=== PATIENT | female | born 1955 | race Caucasian/White ===

== ENCOUNTER → 2017-03-22 | Outpatient (CLI) | payer BC ==
--- NOTE | 2017-03-22 11:32 | US ---
EXAMINATION TYPE: US venous doppler duplex LE LT DATE OF EXAM: 03/22/2017 11:11 AM COMPARISON: NONE CLINICAL HISTORY: M25.562,M17.12,I82.402,PAIN LT KNEE,OSTEOARTHRITIS,ACUTE EMB. Left leg pain and swe lling x 2 days SIDE PERFORMED: Left TECHNIQUE: The lower extremity deep venous system is examined utilizing real time linear array sonog ana with graded compression, doppler sonography and color-flow sonography. VESSELS IMAGED: External Iliac Vein (EIV) Common Femoral Vein Deep Femoral Vein Greater Saphenous Vein * Femoral Vein Popliteal Vein Small Saphenous Vein * Proximal Calf Veins (* superficial vessels) Left Leg: Appears negative for DVT, popliteal fossa: 8.4cm irregular non vascular complex area anter ior to and separate from vessels Complex popliteal cyst is not excluded. Consider thrombosed varicosities within the differential. Vas cularity is not identified within this structure. Additional workup with MRI may be useful. IMPRESSION: 1. No deep venous from below cysts by ultrasound. 2. Irregular echogenicity which appears somewhat lobular in the posterior fossa. This is not a typica l hypoechoic cyst. This has more echogenicity than typically identified for a typical popliteal fossa cyst. Consider MRI for additional evaluation.
== END | disposition home or self-care (01) ==
LOC: RADUSWWP 10:36
PROVIDERS: ATTEND Orthopaedic Surgery
DX: M25.562 Pain in left knee (principal); M79.662 Pain in left lower leg

== ENCOUNTER → 2017-04-23 | Outpatient (CLI) | payer BC ==
[2017-04-23 11:56] LABS: Blood Urea Nitrogen 18 mg/dL (7-17); Non-African American GFR(MDRD) >60 (>60 ml/min/1.73 sqM)
== END | disposition home or self-care (01) ==
LOC: LABWHC1 10:56
PROVIDERS: ATTEND Orthopaedic Surgery
DX: Z01.812 Encounter for preprocedural laboratory examination (principal); M17.12 Unilateral primary osteoarthritis, left knee; M71.22 Synovial cyst of popliteal space [Baker], left knee; R60.1 Generalized edema
CPT/HCPCS: 36415; 82565; 84520

== ENCOUNTER → 2018-08-05 | Outpatient (CLI) | payer MEDICARE ==
--- NOTE | 2018-08-06 07:39 | MM ---
Reason for exam: additional evaluation requested from abnormal screening. Last mammogram was performed 1 month ago. History: Patient is postmenopausal. Family history of breast cancer in cousin. Took hormonal contraceptives for 5 years beginning at age 20. Physical Findings: Nurse did not find any significant physical abnormalities on exam. MG 3D Work Up W/Cad RT CC and MLO view(s) were taken of the right breast. Prior study comparison: July 10, 2018, bilateral MG 3d screening mammo w/cad. September 27, 2015, bilateral MG screening mammo w CAD. There are scattered fibroglandular densities. Asymmetric breast tissue in right breast 10cm from nipple, 5mm in size. No significant new findings when compared with previous films. These results were verbally communicated with the patient and result sheet given to the patient on 08/05/18. ASSESSMENT: Incomplete: need additional imaging evaluation, BI-RAD 0 RECOMMENDATION: Ultrasound of the right breast.
--- NOTE | 2018-08-06 07:40 | USB ---
Reason for exam: additional evaluation requested from abnormal screening. History: Patient is postmenopausal. Family history of breast cancer in cousin. Took hormonal contraceptives for 5 years beginning at age 20. US Breast Workup Limited RT Right limited breast ultrasound including focal area of concern, retroareolar and axilla demonstrates no cystic or solid lesion seen. These results were verbally communicated with the patient and result sheet given to the patient on 08/05/18. ASSESSMENT: Probably benign, BI-RAD 3 RECOMMENDATION: Follow-up diagnostic mammogram of the right breast in 6 months.
== END | disposition home or self-care (01) ==
LOC: RADMAMWWP 14:57
PROVIDERS: ATTEND Internal Medicine
DX: R92.8 Other abnormal and inconclusive findings on diagnostic imaging of breast (principal)
CPT/HCPCS: 77065; 76642; G0279; 77061

== ENCOUNTER → 2019-08-06 | Outpatient (CLI) | payer MEDICARE ==
--- NOTE | 2019-08-06 10:54 | MM ---
Reason for exam: additional evaluation requested from prior study. Last mammogram was performed 1 year ago. History: Patient is postmenopausal. Family history of breast cancer in cousin. Took hormonal contraceptives for 5 years beginning at age 20. Physical Findings: Nurse did not find any significant physical abnormalities on exam. MG 3D Diag Mammo W/Cad COLLIN Bilateral CC and MLO view(s) were taken. Prior study comparison: August 05, 2018, right breast MG 3d work up w/cad RT. July 10, 2018, bilateral MG 3d screening mammo w/cad. There are scattered fibroglandular densities. There is a persistent 3mm mass with an internal calcifications 10cm from nipple in the upper outer quadrant. These results were verbally communicated with the patient and result sheet given to the patient on 08/06/19. ASSESSMENT: Incomplete: need additional imaging evaluation, BI-RAD 0 RECOMMENDATION: Ultrasound of the right breast. (upper outer quadrant)
--- NOTE | 2019-08-06 10:57 | USB ---
Reason for exam: additional evaluation requested from abnormal screening. History: Patient is postmenopausal. Family history of breast cancer in cousin. Took hormonal contraceptives for 5 years beginning at age 20. US Breast RT Right complete breast ultrasound includes all four quadrants, the retroareolar region and axilla. Finding demonstrates no cystic or solid lesion seen. No sonographic correlate. Benign the mammographic abnormality is stable from 2018 but new from remote priors, this remains probably benign. These results were verbally communicated with the patient and result sheet given to the patient on 08/06/19. ASSESSMENT: Probably benign, BI-RAD 3 RECOMMENDATION: Follow-up diagnostic mammogram of both breasts in 1 year.
== END | disposition home or self-care (01) ==
LOC: RADMAMWWP 09:03
PROVIDERS: ATTEND Internal Medicine
DX: R92.8 Other abnormal and inconclusive findings on diagnostic imaging of breast (principal)
CPT/HCPCS: 77066; 76641; G0279; 77062

== ENCOUNTER 2020-12-01 09:43 | Emergency (ER) | payer MEDICARE ==
[2020-12-01 09:52] VITALS: RESP 18
--- NOTE | 2020-12-01 10:39 | ED ---
General Adult HPI - General Chief complaint: Upper Respiratory Infection Stated complaint: Covid+, infusion Time Seen by Provider: 12/01/20 10:38 Source: patient Mode of arrival: ambulatory Limitations: no limitations - History of Present Illness Initial comments: 65-year-old female presents to emergency Department with a chief complaint of Covid infusion. Patient reports she was advised by Dr. Raphael to have a monoclonal antibody infusion but she was leery of getting it and went and did some additional research. States she decided to return today to get the infusion. States she tested positive yesterday but has been having symptoms for the past 4 days. She reports fatigue, myalgias and a nonproductive cough. Denies any chest pain or shortness of breath, nausea, vomiting, diarrhea, abdominal pain. - Related Data Home Medications Medication Instructions Recorded Confirmed Cetirizine HCl [Zyrtec] 5 mg PO DAILY 05/12/14 05/12/14 Citalopram Hydrobromide [CeleXA] 20 mg PO DAILY 05/12/14 05/12/14 Lovastatin [Mevacor] 10 mg PO DAILY 05/12/14 05/12/14 lisinopriL [Zestril] 5 mg PO DAILY 05/12/14 05/12/14 Allergies Allergy/AdvReac Type Severity Reaction Status Date / Time No Known Allergies Allergy Verified 12/01/20 09:48 Review of Systems ROS Statement: Those systems with pertinent positive or pertinent negative responses have been documented in the HPI. ROS Other: All systems not noted in ROS Statement are negative. Past Medical History Past Medical History: Hyperlipidemia, Hypertension History of Any Multi-Drug Resistant Organisms: None Reported Past Surgical History: Orthopedic Surgery Additional Past Surgical History / Comment(s): RIGHT KNEE SURGERY Past Psychological History: No Psychological Hx Reported Smoking Status: Never smoker Past Alcohol Use History: Daily Past Drug Use History: None Reported General Exam Limitations: no limitations General appearance: alert, in no apparent distress Head exam: Present: atraumatic, normocephalic, normal inspection Eye exam: Present: normal appearance, PERRL, EOMI Pupils: Present: normal accommodation ENT exam: Present: normal exam, normal oropharynx, mucous membranes moist, TM's normal bilaterally, normal external ear exam Neck exam: Present: normal inspection, full ROM. Absent: tenderness Respiratory exam: Present: normal lung sounds bilaterally. Absent: respiratory distress Cardiovascular Exam: Present: regular rate, normal rhythm, normal heart sounds GI/Abdominal exam: Present: soft. Absent: distended, tenderness, guarding, rebound Extremities exam: Present: normal inspection, full ROM, normal capillary refill. Absent: tenderness, pedal edema, joint swelling Back exam: Present: normal inspection, full ROM. Absent: tenderness, CVA tenderness (R), CVA tenderness (L) Neurological exam: Present: alert, oriented X3 Psychiatric exam: Present: normal affect, normal mood Skin exam: Present: warm, dry, intact, normal color Course Vital Signs 12/01/20 09:48 Temperature 98.6 F Pulse Rate 63 Respiratory 18 Rate Blood Pressure 128/82 O2 Sat by Pulse 100 Oximetry Medical Decision Making - Medical Decision Making 65-year-old female presents to emergency Department with a chief complaint of code infusion. Physical examination is unremarkable. Patient does not appear to be in any respiratory distress. Vital signs are within normal limits. She does fit the criteria to have the medication given. monoclonal antibody administered. Was observed for one hour after administration. Patient will be discharged. Strict return parameters were thoroughly discussed patient was him standing and agreeable. Case discussed with Dr. Brooks. Disposition Clinical Impression: COVID-19 Disposition: HOME SELF-CARE Condition: Stable Instructions (If sedation given, give patient instructions): Coronavirus Disease 2019 (COVID-19) Additional Instructions: Please return to the Emergency Department if symptoms worsen or any other concerns. Quarantine for 10 days after the onset of symptoms. Take Tylenol for fever. Is patient prescribed a controlled substance at d/c from ED?: No Referrals: Caesar Raphael MD [Primary Care Provider] - 1-2 days Time of Disposition: 11:03
[2020-12-01] MEDS ORDERED: BAMLANIVIMAB (EUA) 700 MG, ETESEVIMAB (EUA) 1,400 MG in SODIUM CHLORIDE 0.9% 50 ML IVPB ONE (11:15)
[2020-12-01 13:30] VITALS: BP 147/83; PULSE 70; TEMP 98.9
== END 2020-12-01 13:20 | disposition home or self-care (01) ==
LOC: EC 09:43
DX: U07.1 COVID-19 (principal); E78.5 Hyperlipidemia, unspecified; I10 Essential (primary) hypertension
CPT/HCPCS: 96365; 99283

== ENCOUNTER 2021-03-12 16:33 | Observation (INO) | payer MEDICARE ==
--- NOTE | 2021-03-12 17:18 | ED ---
General Adult HPI - General Chief complaint: Altered Mental Status Stated complaint: Confused Time Seen by Provider: 03/12/21 16:58 Source: patient Mode of arrival: ambulatory Limitations: no limitations - History of Present Illness Initial comments: Dictation was produced using [employer] dictation software. please excuse any grammatical, word or spelling errors. Chief Complaint: 65-year-old female presents emergency department for altered mental status History of Present Illness: 65-year-old female she is accompanied by a friend. Patient was at one of the local [facility] when all of a sudden she developed acute mental status changes. Patient's friend accompanies the patient they were going about their business when all of a sudden patient began asking a lot of questions. She seems to be forgetful of the short-term. She is brought to the emergency department. Patient knows that she is confused. Patient has any numbness tingling weakness to the extremities. Patient has no history of stroke. She denies any history of headaches. The ROS documented in this emergency department record has been reviewed and confirmed by me. Those systems with pertinent positive or negative responses have been documented in the HPI. All other systems are other negative and/or noncontributory. PHYSICAL EXAM: General Impression: Alert and oriented x3, not in acute distress HEENT: Normocephalic atraumatic, extra-ocular movements intact, pupils equal and reactive to light bilaterally, mucous membranes moist. Cardiovascular: Heart regular rate and rhythm Chest: Able to complete full sentences, no retractions, no tachypnea Abdomen: abdomen soft, non-tender, non-distended, no organomegaly Musculoskeletal: Pulses present and equal in all extremities, no peripheral edema Motor: no focal deficits noted Neurological: CN II-XII grossly intact, no focal motor or sensory deficits noted, NIH 0 Skin: Intact with no visualized rashes Psych: Normal affect and mood ED course: 65-year-old female presents with confusion. She appears to have short-term amnesia. She does not quite remember the events that happened earlier today. She however otherwise has a normal neuro exam. Vital signs upon arrival are within acceptable limits. Patient's well-appearing hours she still rather forgetful about the events that happened today. Computed tomography scan of the brain and labs are unremarkable. Patient reevaluated bedside she is resting comfortably however she still having trouble remembering what she did today. Patient has no history of neurologic issues. Disposition options were discussed. Patient is agreeable for observation admission with consultation to neurology. EKG interpretation: Ventricular rate 80, normal sinus rhythm,. Interval 190, QRS 100, QTC 452. No AL prolongation, no QTC prolongation, n T-wave inversions in the anterior precordial leads No old EKG for comparison. Overall, this EKG is nonspecific - Related Data Home Medications Medication Instructions Recorded Confirmed Cetirizine HCl [Zyrtec] 5 mg PO DAILY 05/12/14 05/12/14 Citalopram Hydrobromide [CeleXA] 20 mg PO DAILY 05/12/14 05/12/14 Lovastatin [Mevacor] 10 mg PO DAILY 05/12/14 05/12/14 lisinopriL [Zestril] 5 mg PO DAILY 05/12/14 05/12/14 Allergies Allergy/AdvReac Type Severity Reaction Status Date / Time No Known Allergies Allergy Verified 03/12/21 16:43 Review of Systems ROS Statement: Those systems with pertinent positive or pertinent negative responses have been documented in the HPI. ROS Other: All systems not noted in ROS Statement are negative. Past Medical History Past Medical History: Hyperlipidemia, Hypertension History of Any Multi-Drug Resistant Organisms: None Reported Past Surgical History: Orthopedic Surgery Additional Past Surgical History / Comment(s): RIGHT KNEE SURGERY Past Psychological History: No Psychological Hx Reported Smoking Status: Never smoker Past Alcohol Use History: Daily Past Drug Use History: None Reported General Exam Limitations: no limitations Course Vital Signs 03/12/21 03/12/21 16:38 17:13 Temperature 97.8 F Pulse Rate 86 72 Respiratory 16 18 Rate Blood Pressure 155/81 154/83 O2 Sat by Pulse 100 96 Oximetry Medical Decision Making - Lab Data Result diagrams: 03/12/21 17:17 03/12/21 17:17 Lab Results 03/12/21 03/12/21 03/12/21 Range/Units 17:17 17:17 17:17 WBC 5.5 (3.8-10.6) k/uL RBC 4.74 (3.80-5.40) m/uL Hgb 13.9 (11.4-16.0) gm/dL Hct 42.0 (34.0-46.0) % MCV 88.6 (80.0-100.0) fL MCH 29.3 (25.0-35.0) pg MCHC 33.1 (31.0-37.0) g/dL RDW 14.0 (11.5-15.5) % Plt Count 217 (150-450) k/uL MPV 6.8 Neutrophils % 71 % Lymphocytes % 19 % Monocytes % 5 % Eosinophils % 2 % Basophils % 0 % Neutrophils # 4.0 (1.3-7.7) k/uL Lymphocytes # 1.1 (1.0-4.8) k/uL Monocytes # 0.3 (0-1.0) k/uL Eosinophils # 0.1 (0-0.7) k/uL Basophils # 0.0 (0-0.2) k/uL PT 11.6 (9.0-12.0) sec INR 1.1 (<1.2) APTT 22.5 (22.0-30.0) sec Sodium 140 (137-145) mmol/L Potassium 3.9 (3.5-5.1) mmol/L Chloride 104 (98-107) mmol/L Carbon Dioxide 28 (22-30) mmol/L Anion Gap 8 mmol/L BUN 16 (7-17) mg/dL Creatinine 0.71 (0.52-1.04) mg/dL Est GFR (CKD-EPI)AfAm >90 (>60 ml/min/1.73 sqM) Est GFR (CKD-EPI)NonAf 89 (>60 ml/min/1.73 sqM) Glucose 98 (74-99) mg/dL Calcium 9.4 (8.4-10.2) mg/dL Total Bilirubin 0.9 (0.2-1.3) mg/dL AST 30 (14-36) U/L ALT 20 (4-34) U/L Alkaline Phosphatase 104 (38-126) U/L Troponin I (0.000-0.034) ng/mL Total Protein 6.8 (6.3-8.2) g/dL Albumin 4.4 (3.5-5.0) g/dL 03/12/21 Range/Units 17:17 WBC (3.8-10.6) k/uL RBC (3.80-5.40) m/uL Hgb (11.4-16.0) gm/dL Hct (34.0-46.0) % MCV (80.0-100.0) fL MCH (25.0-35.0) pg MCHC (31.0-37.0) g/dL RDW (11.5-15.5) % Plt Count (150-450) k/uL MPV Neutrophils % % Lymphocytes % % Monocytes % % Eosinophils % % Basophils % % Neutrophils # (1.3-7.7) k/uL Lymphocytes # (1.0-4.8) k/uL Monocytes # (0-1.0) k/uL Eosinophils # (0-0.7) k/uL Basophils # (0-0.2) k/uL PT (9.0-12.0) sec INR (<1.2) APTT (22.0-30.0) sec Sodium (137-145) mmol/L Potassium (3.5-5.1) mmol/L Chloride (98-107) mmol/L Carbon Dioxide (22-30) mmol/L Anion Gap mmol/L BUN (7-17) mg/dL Creatinine (0.52-1.04) mg/dL Est GFR (CKD-EPI)AfAm (>60 ml/min/1.73 sqM) Est GFR (CKD-EPI)NonAf (>60 ml/min/1.73 sqM) Glucose (74-99) mg/dL Calcium (8.4-10.2) mg/dL Total Bilirubin (0.2-1.3) mg/dL AST (14-36) U/L ALT (4-34) U/L Alkaline Phosphatase (38-126) U/L Troponin I <0.012 (0.000-0.034) ng/mL Total Protein (6.3-8.2) g/dL Albumin (3.5-5.0) g/dL Disposition Clinical Impression: Acute alteration in mental status Disposition: ADMITTED IP TO THIS HOSP Condition: Fair Referrals: Caesar Raphael MD [Primary Care Provider] - 1-2 days
[2021-03-12 17:27] LABS: Basophils % (A) 0 %; Eosinophils # (A) 0.1 k/uL (0-0.7); Eosinophils % (A) 2 %; HGB 13.9 gm/dL (11.4-16.0); Lymphocytes # (A) 1.1 k/uL (1.0-4.8); Lymphocytes % (A) 19 %; MCH 29.3 pg (25.0-35.0); MCHC 33.1 g/dL (31.0-37.0); MCV 88.6 fL (80.0-100.0); Mean Platelet Volume 6.8; Monocytes # (A) 0.3 k/uL (0-1.0); Monocytes % (A) 5 %; Neutrophils % (A) 71 %; Platelet Count 217 k/uL (150-450); RBC 4.74 m/uL (3.80-5.40); WBC 5.5 k/uL (3.8-10.6)
[2021-03-12 17:39] LABS: ALT 20 U/L (4-34); AST 30 U/L (14-36); African American GFR (CKD) >90 (>60 ml/min/1.73 sqM); Albumin 4.4 g/dL (3.5-5.0); Alkaline Phosphatase 104 U/L (38-126); Anion Gap 8 mmol/L; Blood Urea Nitrogen 16 mg/dL (7-17); Calcium 9.4 mg/dL (8.4-10.2); Carbon Dioxide 28 mmol/L (22-30); Chloride 104 mmol/L (98-107); Glucose 98 mg/dL (74-99); Non-African American GFR(CKD) 89 (>60 ml/min/1.73 sqM); Potassium 3.9 mmol/L (3.5-5.1); Sodium 140 mmol/L (137-145); Total Bilirubin 0.9 mg/dL (0.2-1.3); Total Protein 6.8 g/dL (6.3-8.2)
[2021-03-12 17:41] LABS: INR 1.1 (<1.2); Partial Thromboplastin Time 22.5 sec (22.0-30.0); Prothrombin Time 11.6 sec (9.0-12.0)
--- NOTE | 2021-03-12 17:41 | CT ---
EXAM: CT brain wo con for TPA CLINICAL HISTORY: Neuro deficit, confusion and suspected stroke. COMPARISON: None TECHNIQUE: Contiguous axial noncontrast images of the brain were obtained. Coronal and sagittal refor mats were generated and reviewed. Automated dose control was used for this exam. FINDINGS: There is no evidence for intracranial hemorrhage, mass effect or midline shift. The white matter is g rossly preserved. Ventricular size and configuration is within normal limits for degree of parenchymal volume. The paranasal sinuses are clear. The mastoid air cells are clear. No evidence for calvarial fracture. IMPRESSION: No acute intracranial abnormality.
--- NOTE | 2021-03-12 18:15 | XR ---
EXAMINATION TYPE: XR chest 2V DATE OF EXAM: 03/12/2021 COMPARISON: NONE HISTORY: Altered mental status. TECHNIQUE: Frontal and lateral views of the chest are obtained. FINDINGS: There is no focal air space opacity, pleural effusion, or pneumothorax seen. The cardiac silhouette size is borderline enlarged. The osseous structures are intact. IMPRESSION: No acute cardiopulmonary process.
[2021-03-12] MEDS ORDERED: NALOXONE 0.4 MG/ML 1 ML VIAL IV PRN (19:04)
[2021-03-12 19:32] LABS: Appearance,Urine Clear (Clear); Bilirubin,Urine Negative (Negative); Blood,Urine Negative (Negative); Color,Urine Yellow; Glucose,Urine (UA) Negative (Negative); Ketones,Urine Negative (Negative); Leukocyte Esterase,Urine Negative (Negative); Nitrite,Urine Negative (Negative); Protein,Urine Negative (Negative); Specific Gravity,Urine 1.023 (1.001-1.035); Urobilinogen,Urine <2.0 mg/dL (<2.0)
[2021-03-12] MEDS: SODIUM CHLORIDE 0.9% 1,000 ML IV SCH (21:50)
[2021-03-13] MEDS ORDERED: FLUTICASONE 50MCG/SPRAY NASAL 16GM EA NOSTRIL PRN (06:55)
--- NOTE | 2021-03-13 09:09 | P.CNNES ---
History of Present Illness Consult date: 03/13/21 Requesting physician: Yogi Calvin Reason for Consult: Acute confusion History of Present Illness: Patient is a 65-year-old right-handed female came to the hospital yesterday at 4:33 PM came to the hospital for altered mental status. Patient has history of hypertension, hyperlipidemia, currently only taking herbal medications, states that yesterday at around 1 PM she has gone to [employer] in [facility], with her friend at 1 PM, when she acutely became confused, asking her "what are you doing here", asking and repeating questions. There was no slurred speech, facial droop or any other focal symptoms reported. Patient states that she didn't remember parking her car at her friend's house, getting into her car, driving to the parking lot of [employer], and then she took trolley. She does not remember what happened after that. She apparently can see a receipt for a Lavender Mina and raspberry jam, but she does not remember buying these items. She does not remember how she got back to her car, if she took a trolley or she walked to her friend's car in the parking lot. Her friend drove her to the hospital. There was no report of facial droop, slurred speech, visual problems. Patient did have a mild headache which is very unusual for her the night prior which she rated 4/10. Yesterday morning she did not have any headache however when she got to the ER, she did have a headache which she dated 02/09. It involves the left parietal temporal region. No nausea or vomiting. At present it is 3-4/10. Vital signs on arrival blood pressure 155/81, pulse rate 86, temperature 97.8, respirations 16. CT head showed no acute intracranial abnormality. No evidence for intracranial hemorrhage mass effect or midline shift. Chest x-ray showed no acute cardiopulmonary disease. EKG with normal sinus rhythm. Incomplete RBBB, left anterior fascicular block. T wave abnormality. Blood test shows normal CBC, PT/PTT, Chem-20, troponin and UA. Patient at home takes a lot of herbs. She takes multivitamin, vitamin D magnesium vitamin C. Patient states that she was treated for hypertension and hyperlipidemia for 8 years, but she quit taking medication in 2015 as her blood pressure and lipids were under control. She used to take lisinopril and something for cholesterol. She drinks 1-2 glasses of wine every night, does not drink heavily. Never smoked. Patient denies any family history of cerebral aneurysms. No history of migraines. Patient's father had history of CVA. Patient states that in and of October 2020, she suffered from Covid-19 for which she received monoclonal antibodies in early December 2020. Patient states that she sometimes takes CBD all, but has not taken it for a couple weeks. Review of Systems As mentioned in HPI. All other review of systems unremarkable. Denies any chest pain shortness of breath wheezing or cough. Denies any nausea vomiting diarrhea. Denies fever or chills, weight loss. Denies double vision, hoarseness, sore throat, dysphagia. Patient does have history of hypertension and anxiety in the past, currently not being treated. Denies diabetes. Patient has arthritis, history of right knee surgery. Past Medical History Past Medical History: Hyperlipidemia, Hypertension History of Any Multi-Drug Resistant Organisms: None Reported Past Surgical History: Orthopedic Surgery Additional Past Surgical History / Comment(s): RIGHT KNEE SURGERY Past Psychological History: No Psychological Hx Reported Smoking Status: Never smoker Past Alcohol Use History: Daily Past Drug Use History: None Reported Medications and Allergies Home Medications Medication Instructions Recorded Confirmed Type Ascorbic Acid [Vitamin C] 1,000 mg PO DAILY 03/12/21 03/12/21 History Beet Root Cap 1 cap PO DAILY 03/12/21 03/12/21 History Cholecalciferol [Vitamin D3 (25 25 mcg PO DAILY 03/12/21 03/12/21 History Mcg = 1000 Iu)] Deep Sleep Tab 1 tab PO HS 03/12/21 03/12/21 History Goji Zavala 1 tab PO DAILY 03/12/21 03/12/21 History Thor Zavala 1 tab PO DAILY 03/12/21 03/12/21 History L.acidoph,Paracasei, B.lactis 1 cap PO DAILY 03/12/21 03/12/21 History [Probiotic] Magnesium Oxide [Mag-Ox] 250 mg PO DAILY 03/12/21 03/12/21 History Multivitamins, Thera [Multivitamin 1 tab PO DAILY 03/12/21 03/12/21 History (formulary)] Oregano Oil 1 tab PO DAILY 03/12/21 03/12/21 History Quercetin 1 tab PO DAILY 03/12/21 03/12/21 History Ubidecarenone [Co Q-10] 100 mg PO DAILY 03/12/21 03/12/21 History Allergies Allergy/AdvReac Type Severity Reaction Status Date / Time No Known Allergies Allergy Verified 03/12/21 19:23 Physical Examination - Vital Signs Vital Signs: Vital Signs Temp Pulse Resp BP Pulse Ox 03/13/21 05:00 98.3 F 73 18 158/78 97 03/13/21 01:29 98.4 F 67 18 150/85 98 03/12/21 23:34 87 16 172/81 98 03/12/21 19:18 97.5 F L 77 18 164/89 99 03/12/21 17:13 72 18 154/83 96 03/12/21 16:38 97.8 F 86 16 155/81 100 Intake and Output 03/12/21 03/13/21 03/13/21 22:59 06:59 14:59 Other: Weight 95.028 kg Patient is an elderly female, very pleasant, in no acute distress. Patient is alert awake oriented to time place and person. Speech and language functions are normal. Attention, concentration and fund of knowledge is adequate. No paraphasic errors noted. On cranial examination, pupils are equal, round and reacting to light, visual [place] are full on confrontation, with no neglect on double simultaneous stimulation, extraocular muscles are intact with no nystagmus. Face is symme tric, tongue protrudes to the midline. Palatal elevation and sensation normal, hearing and shoulder shrug normal, facial sensation normal. On muscle strength testing, there is no pronator drift and the strength is normal in arms and legs distally and proximally. Deep tendon reflexes are 1 in the upper limbs, 2 in the lower limbs and plantars downgoing. Sensory to touch and temperature is equal with no neglect. Cerebellar function showed no ataxia for ownpor-gb-jomz testing. No dysdiadoch okinesia. Tone and bulk of muscles normal. Gait normal. On general examination, there is no carotid bruit or murmur, S1-S2 audible. Abdomen is soft nontender. Chest is clear. Peripheral pulses are present. No edema. Results - Laboratory Findings CBC and BMP: 03/12/21 17:17 03/12/21 17:17 Assessment and Plan Assessment: * Transient global amnesia. Exact cause is uncertain. Rule out CVA, partial seizure, ? Migraine. No previous history of migraines. * Previous history of hypertension and hyperlipidemia, currently not being treated. * History of anxiety and depression. Plan: * Patient needs workup for TGA/TIA. * Patient will undergo MRI of the brain to evaluate for an acute stroke, MRA of the head to rule out any cerebral aneurysm (due to cephalgia) * Carotid Doppler * 2-D echo * Fasting lipid panel, hemoglobin A1c, B12 folate, TSH * Telemetry monitoring. * EEG. * Neurology will follow.
--- NOTE | 2021-03-13 10:18 | US ---
EXAMINATION TYPE: US carotid duplex BILAT DATE OF EXAM: 03/13/2021 COMPARISON: NONE CLINICAL HISTORY: Transient global amnesia, rule out TIA. HTN EXAM MEASUREMENTS: RIGHT: Peak Systolic Velocity (PSV) cm/sec ----- Right CCA: 68.0 ----- Right ICA: 64.7 ----- Right ECA: 69.1 ICA/CCA ratio: 1.0 RIGHT: End Diastole cm/sec ----- Right CCA: 13.1 ----- Right ICA: 19.7 ----- Right ECA: 10.9 LEFT: Peak Systolic Velocity (PSV) cm/sec ----- Left CCA: 58.1 ----- Left ICA: 68.0 ----- Left ECA: 60.3 ICA/CCA ratio: 1.2 LEFT: End Diastole cm/sec ----- Left CCA: 15.3 ----- Left ICA: 17.5 ----- Left ECA: 10.9 VERTEBRALS (direction of flow): Right Vertebral: Antegrade Left Vertebral: Antegrade Rhythm: Normal No elevated velocities, significant stenosis, plaque or wall thickening IMPRESSION: No evidence for hemodynamically significant stenosis. Criteria for Assigning % of Stenosis / Diameter reduction (Estimation based on the indirect measurements of the internal carotid artery velocities (ICA PSV). 1. Normal (no stenosis)=ICA PSV < 125 cm/s: ratio < 2.0: ICA EDV<40 cm/s. 2. Less than 50% stenosis=ICA PSV < 125 cm/s: ratio < 2.0: ICA EDV<40 cm/s. 3. 50 to 69% stenosis=ICA PSV of 125 to 230 cm/s: ration 2.0 ? 4.0: ICA EDV 40-100 cm/s. 4. Greater than 70% stenosis to near occlusion= ICA PSV > 230 cm/s: ratio > 4.0: ICA EDV > 100 cm/s. 5. Near occlusion= ICA PSV velocities may be low or undetectable: variable ratio and ICA EDV. 6. Total occlusion=unable to detect flow.
[2021-03-13] MEDS: ASCORBIC ACID 500 MG TAB PO SCH (12:22)
[2021-03-13] MEDS: CHOLECALCIFEROL 25 MCG (1000 IU) TABLET PO SCH (12:23)
[2021-03-13 14:50] LABS: Chol/HDL Ratio 4.37; LDL Cholesterol,Calculated 158.2 mg/dL (0.0-131.0); VLDL Calculation 23.8 mg/dL (5.00-40.00)
--- NOTE | 2021-03-13 15:05 | MR ---
EXAMINATION TYPE: MR angio head wo con DATE OF EXAM: 03/13/2021 2:23 PM COMPARISON: NONE HISTORY: Global amnesia Three-dimensional [id number] intracranial MRA was performed with multiple intensity projection im ages submitted and source data reviewed at the workstation. The vertebrobasilar system as well as intracranial portions of the internal carotid arteries and thei r major tributaries are patent. 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 Consider confirmation with conventional angiography. No additional aneurysms seen. No vascular mal formations noted. IMPRESSION: . 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 Consider confirmation with conventional angiography.
--- NOTE | 2021-03-13 15:07 | MR ---
EXAMINATION TYPE: MR brain wo con DATE OF EXAM: 03/13/2021 2:23 PM COMPARISON: NONE HISTORY: Transient global amnesia FINDINGS: The ventricles, basal cisterns and sulci overlying the cerebral convexities are mildly enlarged. There is evidence of mild periventricular white matter ischemic demyelination. Remote deep white matter insults are also noted. No acute edema is seen on diffusion weighted imaging. There is no evidence for midline shift or mass effect. Acute intracranial hemorrhage or extra-axial collection is not evident. The paranasal sinuses and mastoid air cells are well-aerated. IMPRESSION: Age-related atrophic and chronic small vessel ischemic change. No acute intracranial process at this time.
[2021-03-13 15:18] LABS: Folate, Serum 10.2 ng/mL
--- NOTE | 2021-03-13 15:31 | EEG ---
ELECTROENCEPHALOGRAM REPORT DATE OF SERVICE: 03/13/2021 PREAMBLE: This is a 65-year-old female with transient global amnesia. This study is performed to evaluate for any epileptiform activity. EEG FINDINGS: This is a 21 channel routine EEG recorded in a patient utilizing 10/20 international system with referential and bipolar montages. The background consists of well developed, well regulated, moderate voltage activity in 8-9 hertz alpha. Background is posterior dominant and reactive to eye opening and closing. Photic driving response was seen with some flash frequencies. Mild drowsiness with appearance of bilaterally symmetric theta frequency rhythm was seen. Brief stage 2 sleep was seen with presence of some vertex waves and occasional sleep spindles at the end of the study. No focal or generalized epileptiform activity was seen. EKG channel showed frequent PVCs. IMPRESSION: This is a normal EEG during wakefulness, drowsiness and brief stage 2 sleep. No focal lateralized or epileptiform activity was seen. EKG channel showed very frequent PVCs consistent with arrhythmia. Clinical correlation is recommended. MMMADISYN / ALEXN: [id number] /
[2021-03-13] MEDS: SODIUM CHLORIDE 0.9% 1,000 ML IV SCH (17:14)
--- NOTE | 2021-03-13 18:19 | P.HPIM ---
History of Present Illness H&P Date: 03/13/21 Darcy Venegas, is a 65-year-old female who presented to [facility] emergency room with a chief complaint of mental status changes patient stated that she was at [employer] with her sister when she was acting confused, she was asking the same questions repeatedly she was not no inguinal she was, patient stated that [place], she was brought to emergency room by her sister however patient did not remember much of what happened for several hours she was evaluated in emergency room and admitted to medical floor for further evaluation and treatment neurology consultation was requested She was evaluated in the emergency room vital examination on presentation revealed a temperature of 97.8 pulse 86 respiration 16 blood pressure 155/81 pulse ox was 100% on room air Laboratory data reveals a white blood count of 5.5 hemoglobin 13.9 platelet count 217 BUN 16 creatinine 0.71 AST 30 ALT 20 TSH 2.0 Testing in the emergency room revealed chest x-ray within normal limits, computed tomography scan of the brain no acute intracranial abnormality, EKG normal sinus rhythm with incomplete right bundle branch block and left anterior fascicular block Patient was admitted to medical floor for further evaluation and treatment Past medical history is significant for history of hypertension, history of hyperlipidemia, history of osteoarthritis, history of vitamin D deficiency, patient denies any previous history of strokes seizure or migraine headaches in the past On review of systems Patient was seen and examined on the medical floor, she is alert and oriented x 3 in no distress, she denies any complaints there is no fever or chills no headache or dizziness no chest pain no shortness of breath no palpitation no cough no nausea or vomiting no abdominal pain no diarrhea no blood in the stools no burning with urination no frequency or urgency and no hematuria, there is no weakness or numbness in any of the extremities no change in vision speech or gait. Past Medical History Past Medical History: Hyperlipidemia, Hypertension History of Any Multi-Drug Resistant Organisms: None Reported Past Surgical History: Orthopedic Surgery Additional Past Surgical History / Comment(s): RIGHT KNEE SURGERY Past Psychological History: No Psychological Hx Reported Smoking Status: Never smoker Past Alcohol Use History: Daily Past Drug Use History: None Reported Medications and Allergies Home Medications Medication Instructions Recorded Confirmed Type Ascorbic Acid [Vitamin C] 1,000 mg PO DAILY 03/12/21 03/12/21 History Beet Root Cap 1 cap PO DAILY 03/12/21 03/12/21 History Cholecalciferol [Vitamin D3 (25 25 mcg PO DAILY 03/12/21 03/12/21 History Mcg = 1000 Iu)] Deep Sleep Tab 1 tab PO HS 03/12/21 03/12/21 History Goji Zavala 1 tab PO DAILY 03/12/21 03/12/21 History Thor Zavala 1 tab PO DAILY 03/12/21 03/12/21 History L.acidoph,Paracasei, B.lactis 1 cap PO DAILY 03/12/21 03/12/21 History [Probiotic] Magnesium Oxide [Mag-Ox] 250 mg PO DAILY 03/12/21 03/12/21 History Multivitamins, Thera [Multivitamin 1 tab PO DAILY 03/12/21 03/12/21 History (formulary)] Oregano Oil 1 tab PO DAILY 03/12/21 03/12/21 History Quercetin 1 tab PO DAILY 03/12/21 03/12/21 History Ubidecarenone [Co Q-10] 100 mg PO DAILY 03/12/21 03/12/21 History Allergies Allergy/AdvReac Type Severity Reaction Status Date / Time No Known Allergies Allergy Verified 03/12/21 19:23 Physical Exam Vitals: Vital Signs Temp Pulse Resp BP Pulse Ox 03/13/21 05:00 98.3 F 73 18 158/78 97 03/13/21 01:29 98.4 F 67 18 150/85 98 03/12/21 23:34 87 16 172/81 98 03/12/21 19:18 97.5 F L 77 18 164/89 99 03/12/21 17:13 72 18 154/83 96 03/12/21 16:38 97.8 F 86 16 155/81 100 Intake and Output 03/12/21 03/13/21 03/13/21 22:59 06:59 14:59 Other: Weight 95.028 kg In general patient is alert and oriented x 3 in no distress HEENT head normocephalic and atraumatic Neck is supple no JVD no goiter no lymphadenopathy no carotid bruit Chest examination is clear to auscultation no crackles no wheezing Cardiac exam reveals regular heart sounds S1 and S2 no gallops no murmurs Abdomen is soft nontender no organomegaly with normal bowel sounds Extremity exam reveals no edema no cyanosis or clubbing Neurological examination reveals no gross focal deficits Results CBC & Chem 7: 03/12/21 17:17 03/12/21 17:17 Assessment and Plan Plan: Acute mental status changes, cause is unclear, no evidence of infectious process, chest x-ray is within normal limits urine analysis does not reveal any evidence of urinary tract infection, neurology consultation was requested Underlying history of hypertension, blood pressure is not well-controlled patient is not taking any blood pressure medication at this time, will start losartan 50 mg by mouth daily and monitor closely, Underlying history of hyperlipidemia, will check lipid profile Previous history of depression patient is not taking any medications at this time History of osteoarthritis with left knee pain At this time patient is admitted to medical floor Neurology consultation requested MRI of the brain and MRA of the brain were ordered Will follow closely Will start blood pressure medication and adjust as needed
--- NOTE | 2021-03-13 18:50 | ECHOF ---
Referral Reason:Transient global amnesia, rule out TIA MEASUREMENTS -------- HEIGHT: 154.9 cm WEIGHT: 94.8 kg BP: 172/81 IVSd: 1.2 cm (0.6 - 1.1) LVIDd: 4.1 cm (3.9 - 5.3) LVPWd: 1.2 cm (0.6 - 1.1) EDV(Teich): 76 ml IVSs: 1.8 cm LVIDs: 2.6 cm LVPWs: 1.4 cm %IVS Thck: 55 % ESV(Teich): 26 ml EF(Teich): 67 % %FS: 36 % SV(Teich): 51 ml LA Diam: 3.7 cm (2.7 - 3.8) RVIDd: 3.3 cm (< 3.3) LALs A4C: 5.4 cm LAAs A4C: 19.3 cm LAESV A-L A4C: 59 ml LAESV MOD A4C: 56 ml LALs A2C: 5.9 cm LAAs A2C: 19.2 cm LAESV A-L A2C: 53 ml LAESV MOD A2C: 51 ml LAESV(A-L): 59 ml LAESV Index (A-L): 30.35 ml/m Ao Diam: 3.2 cm (2.0 - 3.7) AV Cusp: 2.2 cm (1.5 - 2.6) EPSS: 0.9 cm MV E [place]: 1.02 m/s MV DecT: 260 ms MV Dec [place]: 3.9 m/s MV A [place]: 1.09 m/s MV E/A Ratio: 0.94 MV PHT: 75 ms AV Vmax: 1.68 m/s AV maxP.27 mmHg AR Vmax: 4.84 m/s AR maxP.53 mmHg AR PHT: 1155 ms AR Dec Time: 3984 ms AR Dec [place]: 1.2 m/s TR Vmax: 2.39 m/s TR maxP.90 mmHg RAP: 5.00 mmHg RVSP: 27.90 mmHg MV EF SLOPE: 20.34 mm/s (70 - 150) MV EXCURSION: 11.71 mm (> 18.000) FINDINGS -------- Sinus rhythm. This was a technically adequate study. The left ventricular size is normal. There is borderline concentric left ventricular hypertrophy. Overall left ventricular systolic function is normal with, an EF between 55 - 60 %. The right ventricle is mildly enlarged. LA is midly dilated 29-33ml/m2. The right atrium is normal in size. Contrast study was performed with 2 iv injections of 8 ccs of agitated normal saline, at rest, and wi th cough. Negative saline bubble study. No PFO noted There is mild aortic regurgitation. Mild mitral annular calcification present. Mild mitral regurgitation is present. Mild tricuspid regurgitation present. Right ventricular systolic pressure is normal at < 35 mmHg. Trace/mild (physiologic) pulmonic regurgitation. The aortic root size is normal. Normal inferior vena cava with normal inspiratory collapse consistent with estimated right atrial pre ssure of 5 mmHg. There is no pericardial effusion. CONCLUSIONS -------- 1. The left ventricular size is normal. 2. There is borderline concentric left ventricular hypertrophy. 3. Overall left ventricular systolic function is normal with, an EF between 55 - 60 %. 4. The right ventricle is mildly enlarged. 5. LA is midly dilated 29-33ml/m2. 6. Contrast study was performed with 2 iv injections of 8 ccs of agitated normal saline, at rest, and with cough. 7. Negative saline bubble study. No PFO noted 8. There is mild aortic regurgitation. 9. Mild mitral annular calcification present. 10. Mild mitral regurgitation is present. 11. Mild tricuspid regurgitation present. 12. Trace/mild (physiologic) pulmonic regurgitation. 13. There is no pericardial effusion. AIR CHIPPER: Sobia Soares RDCS
[2021-03-13] MEDS: ACETAMINOPHEN TAB 325 MG TAB PO PRN (20:05)
[2021-03-13] MEDS: LOSARTAN 50 MG TAB PO SCH (20:17)
[2021-03-13 21:04] LABS: Amphetamine Screen,Urine Not Detected (NotDetected); Barbiturate Screen,Urine Not Detected (NotDetected); Benzodiazepines Screen,Urine Not Detected (NotDetected); Cocaine Screen,Urine Not Detected (NotDetected); Methadone Screen, Urine Not Detected (NotDetected); Opiate Screen,Urine Not Detected (NotDetected); Oxycodone Screen, Urine Not Detected (NotDetected); Phencyclidine Screen,Urine Not Detected (NotDetected); Tricyclic Antidepressant,Urine Not Detected (NotDetected); Urn Cannabinoid Scrn Not Detected (NotDetected)
[2021-03-14 02:14] VITALS: RESP 16
[2021-03-14] MEDS: ACETAMINOPHEN TAB 325 MG TAB PO PRN (07:34)
[2021-03-14] MEDS: CHOLECALCIFEROL 25 MCG (1000 IU) TABLET PO SCH (07:35)
[2021-03-14] MEDS: LOSARTAN 50 MG TAB PO SCH (07:36)
[2021-03-14] MEDS: ASCORBIC ACID 500 MG TAB PO SCH (07:36)
[2021-03-14 09:15] LABS: Basophils # (A) 0.02 X 10*3/uL (0.00-0.10); Basophils % (A) 0.5 %; Eosinophils # (A) 0.14 X 10*3/uL (0.04-0.35); Eosinophils % (A) 3.4 %; HCT 37.3 % (37.2-46.3); Lymphocytes # (A) 1.35 X 10*3/uL (0.90-5.00); Lymphocytes % (A) 32.8 %; MCH 29.1 pg (27.0-32.0); MCHC 32.2 g/dL (32.0-37.0); MCV 90.3 fL (80.0-97.0); Mean Platelet Volume 9.8 fL (9.5-12.2); Monocytes # (A) 0.49 X 10*3/uL (0.20-1.00); Monocytes % (A) 11.9 %; Neutrophils # (A) 2.11 X 10*3/uL (1.80-7.70); Neutrophils % (A) 51.2 %; Platelet Count 190 X 10*3/uL (140-440); RBC 4.13 X 10*6/uL (4.10-5.20); RDW 13.7 % (11.5-14.5); WBC 4.12 X 10*3/uL (4.50-10.00)
--- NOTE | 2021-03-14 09:38 | P.PN ---
Subjective Progress Note Date: 03/14/21 Patient was seen for a follow-up. Her memory functions is back to normal. Patient's headache has resolved. She believes her headaches are usually related to BM and "peeing". If she does not have regular bowel movement, or holds urine, then can get a headache. This morning "after peeing", the headache went away. No focal symptoms. Objective - Vital Signs Vital signs: Vital Signs Temp 97.5 F L 03/14/21 07:00 Pulse 62 03/14/21 07:00 Resp 16 03/14/21 07:00 BP 144/66 03/14/21 07:00 Pulse Ox 99 03/14/21 07:00 Intake & Output 03/13/21 03/14/21 03/14/21 18:59 06:59 18:59 Intake Total 1200 Balance 1200 Intake: Oral 1200 Other: Voiding Method Toilet # Voids 6 2 # Bowel Movements 0 - Exam Normal. - Labs CBC & Chem 7: 03/14/21 04:45 03/12/21 17:17 Labs: Abnormal Lab Results - Last 24 Hours (Table) 03/13/21 03/14/21 Range/Units 08:39 04:45 WBC 4.12 L (4.50-10.00) X 10*3/uL Cholesterol 236 H (0-200) mg/dL LDL Cholesterol, Calc 158.2 H (0.0-131.0) mg/dL Assessment and Plan Assessment: * Transient global amnesia. Exact cause is uncertain. No evidence of CVA, or seizure based upon the testing. No previous history of migraines. * Right ICA supraclinoid aneurysm measuring 5.6 mm * Hypertension * Hyperlipidemia * History of anxiety and depression. Plan: * MRA of the brain revealed right ICA supraclinoid aneurysm measuring 5.6 mm. * MRI of brain revealed age-related atrophic and chronic small vessel ischemic change. No acute intracranial process. * EEG normal. However EKG channel showed arrhythmia. Correlate clinically. * 2-D echo revealed borderline concentric LVH, EF is between 55-60%. Left atrium is mildly dilated. Bubble study negative for PFO. Mild ER. * Carotid Doppler revealed no evidence of hemodynamically significant stenosis. Antegrade flow in both vertebral arteries. * Fasting lipid panel with cholesterol 236, LDL 158, HDL 54 and triglycerides 119. Recommended statins, but patient is somewhat reluctant. Would defer to Dr Raphael. * Hemoglobin A1c 5.0, * B12 368. Patient does take oral B12 sporadically. Recommended to take it more regularly. * Folate 10.2 normal, * TSH 2.00 * Telemetry monitoring apparently not performed. Recommend: * Start blood pressure medication to control blood pressure target <130/80 * Control lipids to target LDL <70. Patient reluctant to start statins. Would defer to IM. * Start aspirin 81 mg daily. * Discussed case with neuro intervention Dr. Chicas. He recommended no need for CTA angiogram. He recommended patient to follow-up in his office. Phone number [phone] given to the patient, to make an appointment in his office. * EEG shows no epileptiform activity, but EKG channel showed some arrhythmia. Consider 24-hour Holter monitoring. * Neurologically clear for discharge.
[2021-03-14] MEDS ORDERED: ASPIRIN 81 MG PO SCH (09:45)
[2021-03-14 10:06] LABS: African American GFR (CKD) 103.9 (60.0-200.0); Albumin 3.8 g/dL (3.80-4.90); Albumin/Globulin Ratio 2.11 (1.60-3.17); Anion Gap 6.5 mmol/L (4.00-12.00); BUN/Creat Ratio 18.57 Ratio (12.00-20.00); Calcium 8.6 mg/dL (8.7-10.3); Carbon Dioxide 27.5 mmol/L (21.6-31.8); Globulin 1.8 g/dL (1.6-3.3); Non-African American GFR(CKD) 89.7 (60.0-200.0); Potassium 4.6 mmol/L (3.5-5.5); Total Bilirubin 0.9 mg/dL (0.2-1.2); Total Protein 5.6 g/dL (6.2-8.2)
[2021-03-14 14:12] VITALS: BP 119/76; PULSE 78; TEMP 98.2
[2021-03-15] MEDS ORDERED: LOSARTAN 50 MG TAB PO SCH (09:00)
== END 2021-03-14 15:20 | disposition home or self-care (01) ==
LOC: EC 16:33 → 6NMEDSUR 19:04
PROVIDERS: ADMIT Internal Medicine; ATTEND Internal Medicine
DX: R41.82 Altered mental status, unspecified (principal); I10 Essential (primary) hypertension; E78.5 Hyperlipidemia, unspecified; R53.1 Weakness; R20.0 Anesthesia of skin; R20.2 Paresthesia of skin; I45.2 Bifascicular block; G43.909 Migraine, unspecified, not intractable, without status migrainosus; E55.9 Vitamin D deficiency, unspecified; F41.9 Anxiety disorder, unspecified; F32.9 Major depressive disorder, single episode, unspecified; M19.90 Unspecified osteoarthritis, unspecified site; M25.562 Pain in left knee; Z79.899 Other long term (current) drug therapy
CPT/HCPCS: 99285; 36415; 95816; 93005; 93306; 80061; 80053 ×2; 84443; 82607; 82746; 84484; 85025 ×2; 85610; 85730; 81003; 80306; 83036; 71046; 93880; 70450; 70544; 70551; G0378 ×3

== ENCOUNTER → 2021-07-03 | Outpatient (CLI) | payer MEDICARE ==
--- NOTE | 2021-07-05 10:36 | MM ---
Reason for exam: screening (asymptomatic). Last mammogram was performed 1 year and 11 months ago. History: Patient is postmenopausal. Family history of breast cancer in cousin. Took hormonal contraceptives for 5 years beginning at age 20. Physical Findings: A clinical breast exam by your physician is recommended on an annual basis and results should be correlated with mammographic findings. MG Screening Mammo w CAD Bilateral CC and MLO view(s) were taken. Prior study comparison: August 06, 2019, bilateral MG 3d diag mammo w/cad [facility]. There are scattered fibroglandular densities. Finding: There is an intermediate concern, suspicious 6 x 10 mm high density, spiculated irregular mass in the upper outer quadrant, middle position of the right breast consistent with enlarging density and calcifications. New finding since August 06, 2019. ASSESSMENT: Incomplete: need additional imaging evaluation, BI-RAD 0 RECOMMENDATION: Special view mammogram of the right breast. If lesion persists on supplemental views, image directed ultrasound is recommended. [facility] will attempt to contact patient to return for supplemental views and ultrasound if indicated.
== END | disposition home or self-care (01) ==
LOC: RADMAMWWP 12:22
PROVIDERS: ATTEND Internal Medicine
DX: Z12.31 Encounter for screening mammogram for malignant neoplasm of breast (principal); Z80.3 Family history of malignant neoplasm of breast; Z78.0 Asymptomatic menopausal state
CPT/HCPCS: 77067

== ENCOUNTER → 2021-07-06 | Outpatient (CLI) | payer MEDICARE ==
--- NOTE | 2021-07-06 13:45 | MM ---
Reason for exam: additional evaluation requested from abnormal screening. Last mammogram was performed less than 1 month ago. History: Patient is postmenopausal. Family history of breast cancer in cousin. Took hormonal contraceptives for 5 years beginning at age 20. Physical Findings: Nurse Summary: 0.5cm palpable in the skin right axilla, patient states has been there for many years and hasn't changed (nurse TM). MG 3D Work Up W/Cad RT CC with magnification, LM with magnification, and LM view(s) were taken of the right breast. Prior study comparison: July 03, 2021, bilateral MG screening mammo w CAD. August 06, 2019, bilateral MG 3d diag mammo w/cad [place]. July 10, 2018, bilateral MG 3d screening mammo w/cad. There are scattered fibroglandular densities. 6mm 11 o'clock focal asymmetry contains a punctate calcification. The density is larger than prior. These results were verbally communicated with the patient and result sheet given to the patient on 07/06/21. ASSESSMENT: Incomplete: need additional imaging evaluation, BI-RAD 0 RECOMMENDATION: Ultrasound of the right breast. (10-11 o'clock)
--- NOTE | 2021-07-06 13:47 | USB ---
Reason for exam: additional evaluation requested from abnormal screening. History: Patient is postmenopausal. Family history of breast cancer in cousin. Took hormonal contraceptives for 5 years beginning at age 20. US Breast Workup Limited RT Right limited breast ultrasound including focal area of concern, retroareolar and axilla demonstrates a 0.6 x 0.5 x 0.8cm hypoechoic lesion at 11 o'clock, likely mammographic correlate, biopsy recommended. Scanned 10-1 o'clock. These results were verbally communicated with the patient and result sheet given to the patient on 07/06/21. ASSESSMENT: Suspicious, BI-RAD 4 RECOMMENDATION: Ultrasound core biopsy of the right breast. Called Dr. Raphael's office with mammographic findings. Biopsy scheduled for 08/01/21 at 1:00. PRELIMINARY REPORT CALLED AND FAXED TO DR. RAPHAEL ON 07/06/21.
== END | disposition home or self-care (01) ==
LOC: RADMAMWWP 09:09
PROVIDERS: ATTEND Internal Medicine
DX: N64.59 Other signs and symptoms in breast (principal); Z78.0 Asymptomatic menopausal state; Z80.3 Family history of malignant neoplasm of breast
CPT/HCPCS: 77065; 76642; G0279; 77061

== ENCOUNTER → 2021-08-01 | Day surgery (SDC) | payer MEDICARE ==
[2021-08-01 12:15] VITALS: RESP 16; TEMP 98
[2021-08-01 13:45] VITALS: BP 137/76; PULSE 65
--- NOTE | 2021-08-01 14:52 | USB ---
EXAMINATION TYPE: US biopsy breast VAD RT DATE OF EXAM: 08/01/2021 CLINICAL HISTORY: R92.8 Abnormal Mammogram. TECHNIQUE: Ultrasound guided vaccuum assisted core biopsy of right breast. COMPARISON: NONE FINDINGS: The ultrasound guided core biopsy procedure was explained to the patient. The risks, benefits, alternatives were discussed. An informed consent was then obtained. Timeout was performed. The patient was placed in supine positioning for imaging and for the procedure. The overlying skin was prepped with betadine and sterilely draped in usual sterile fashion. Lidocaine 1% was used as anesthetic into the skin and deeper breast tissue up to area of concern in the breast. A small skin salvatore was made with surgical scalpel. Under ultrasound guidance, a 12-gauge vacuum assisted biopsy device was used to obtain 7 core samples. A biopsy clip was left just distal to the lesion. Wing clip was utilized Good hemostasis was obtained with direct pressure. Discharge instructions were discussed with the patient. The patient will follow up with the referring physician for results. Postprocedure mammogram: The patient was transferred to mammography for physician ordered post procedure mammogram for clip placement verification. The clip is in the expected region of the biopsy. The patient tolerated the procedure well without any immediate complication. The patient was discharged to home in stable condition. IMPRESSION: 1. Successful ultrasound guided biopsy right breast. Recommendations: 1. Recommendations are pending pathology results. 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 See Surgical Pathology Cancer Case Summary and Comment. Recommendation Surgical consult of the right breast. JAMEE
--- NOTE | 2021-08-01 14:53 | MM ---
EXAMINATION TYPE: US biopsy breast VAD RT DATE OF EXAM: 08/01/2021 CLINICAL HISTORY: R92.8 Abnormal Mammogram. TECHNIQUE: Ultrasound guided vaccuum assisted core biopsy of right breast. COMPARISON: NONE FINDINGS: The ultrasound guided core biopsy procedure was explained to the patient. The risks, benef its, alternatives were discussed. An informed consent was then obtained. Timeout was performed. The patient was placed in supine positioning for imaging and for the procedure. The overlying skin w as prepped with betadine and sterilely draped in usual sterile fashion. Lidocaine 1% was used as ane sthetic into the skin and deeper breast tissue up to area of concern in the breast. A small skin ragini k was made with surgical scalpel. Under ultrasound guidance, a 12-gauge vacuum assisted biopsy device was used to obtain 7 core samples . A biopsy clip was left just distal to the lesion. Wing clip was utilized Good hemostasis was obtained with direct pressure. Discharge instructions were discussed with the peter carpio. The patient will follow up with the referring physician for results. Postprocedure mammogram: The patient was transferred to mammography for physician ordered post proced ure mammogram for clip placement verification. The clip is in the expected region of the biopsy. The patient tolerated the procedure well without any immediate complication. The patient was dischar ged to home in stable condition. IMPRESSION: 1. Successful ultrasound guided biopsy right breast. Recommendations: 1. Recommendations are pending pathology results.
== END ==
LOC: RADUSWWP 11:48
PROVIDERS: ATTEND Internal Medicine
DX: C50.411 Malignant neoplasm of upper-outer quadrant of right female breast (principal); Z17.0 Estrogen receptor positive status [ER+]
CPT/HCPCS: 19083; 88305; 88342; 88341; 77065; A4648; J2001

== ENCOUNTER → 2021-08-18 | Outpatient (CLI) | payer MEDICARE ==
[2021-08-18 10:32] VITALS: BP 132/84; PULSE 77; RESP 16; TEMP 97.4
--- NOTE | 2021-08-18 11:50 | P.GSHP ---
History of Present Illness H&P Date: 08/18/21 Chief Complaint: invasive ductal cancer right breast Darcy is a 66 year old white female seen in consultation for Dr. Raphael regarding an invasive ductal carcinoma in the right breast. A routine screening mammogram performed on this revealed a 6 x 10 mm high-density spiculated irregular mass in the upper outer quadrant middle position of the right breast the patient subsequently an ultrasound of the right breast on . Ultrasound revealed a 0.6 x 0.8 cm lesion at 11:00. This was felt to correlate with the mammographic abnormality and biopsy was recommended. Biopsy was performed on [id number] and this revealed an invasive well-differentiated ductal carcinoma grade 1. This is ER/NV positive and HER-2 negative. Is not had any surgery on either breast prior to this biopsy. She is not complaining of any pain in her breast. She's not had any recent trauma or infection in the breast. She is not complaining of any nipple discharge or skin changes in either breast. Caffeine: 1 cup/day nicotine: none chocolate: occasional Family History: paternal cousin: breast cancer Hormonal History: menarche: 12 , breast fed: yes, age at first : 27 menopause: 45 BCP:5 years hormones: none Surgical history: appy partial hysterectomy 44 (bleedine no cancer) right knee brain stint/angiogram 04-28-21; angiogram in September; [facility] for a brain aneurysm dx. transient global amnesia March 12 Medical History: Cerebral aneurysm/status post stent placement CPAP HTN high cholesterol Social History: nicotine: none, parents smokers alcohol: wine daily drugs: Tried it in the past - Constitutional Constitutional: Denies chills, Denies fever - EENT Eyes: denies blurred vision, denies pain Ears: bilateral: tinnitus Ears, nose, mouth and throat: Reports as per HPI - Breasts Breasts: bilateral: as per HPI - Cardiovascular Cardiovascular: Denies chest pain, Denies shortness of breath - Respiratory Respiratory: Denies cough, Denies 7 - Gastrointestinal Gastrointestinal: Denies abdominal pain, Denies diarrhea, Denies nausea, Denies vomiting - Genitourinary (Female) Genitourinary: Denies dysuria, Denies hematuria - Menstruation Menstruation: Reports postmenopausal - Musculoskeletal Musculoskeletal: Denies myalgias - Integumentary Integumentary: Denies pruritus, Denies rash - Neurological Neurological: Reports as per HPI - Psychiatric Psychiatric: Denies anxiety, Denies depression - Endocrine Endocrine: Denies fatigue, Denies weight change - Hematologic/Lymphatic Comment: baby aspirin, was using brilinta - Allergic/Immunologic Allergic/Immunologic: Reports seasonal allergies Past Medical History Past Medical History: Hyperlipidemia, Hypertension, Osteoarthritis (OA) Additional Past Medical History / Comment(s): Uses CPAP for sleep apnea History of Any Multi-Drug Resistant Organisms: None Reported Past Surgical History: Appendectomy, Hysterectomy, Orthopedic Surgery Additional Past Surgical History / Comment(s): RIGHT KNEE SURGERY. Brain stent palced in May 2021 for aneurysm Past Anesthesia/Blood Transfusion Reactions: No Reported Reaction Past Psychological History: Anxiety, Depression Smoking Status: Never smoker Past Alcohol Use History: Daily Additional Past Alcohol Use History / Comment(s): one drink daily Past Drug Use History: None Reported Medications and Allergies Home Medications Medication Instructions Recorded Confirmed Type Beet Root Cap 1 cap PO DAILY 03/12/21 08/18/21 History Cholecalciferol [Vitamin D3 (25 25 mcg PO DAILY 03/12/21 08/18/21 History Mcg = 1000 Iu)] Deep Sleep Tab 1 tab PO HS 03/12/21 08/18/21 History L.acidoph,Paracasei, B.lactis 1 cap PO DAILY 03/12/21 08/18/21 History [Probiotic] Magnesium Oxide [Mag-Ox] 250 mg PO DAILY 03/12/21 08/18/21 History Multivitamins, Thera [Multivitamin 1 tab PO DAILY 03/12/21 08/18/21 History (formulary)] Quercetin 1 tab PO DAILY 03/12/21 08/18/21 History Ubidecarenone [Co Q-10] 100 mg PO DAILY 03/12/21 08/18/21 History Aspirin 81 mg PO DAILY chew 03/14/21 08/18/21 Rx Fluticasone Nasal [place] [Flonase 2 spray EA NOSTRIL DAILY PRN spr 03/14/21 08/18/21 Rx Nasal [place]] Losartan [Cozaar] 100 mg PO DAILY tab 03/14/21 08/18/21 Rx Lysine [l-Lysine] 600 mg PO DAILY 07/21/21 08/18/21 History Allergies Allergy/AdvReac Type Severity Reaction Status Date / Time No Known Allergies Allergy Verified 08/18/21 10:28 Surgical - Exam Vital Signs Temp Pulse Resp BP 97.4 F L 77 16 132/84 08/18/21 10:29 08/18/21 10:29 08/18/21 10:29 08/18/21 10:29 BMI 40.6 - General no distress - Eyes normal ocular movement - ENT no hearing loss - Neck trachea midline - Respiratory normal respiratory effort - Cardiovascular Rhythm: regular Heart Sounds: normal: S1, S2 - Abdomen Abdomen: soft - Integumentary normal turgor - Neurologic no disoriented, no combative - Musculoskeletal normal gait - Psychiatric oriented to time, oriented to person, oriented to place, speech is normal, memory intact Breast Exam: BRA: 42DD inspection: grade 3 ptosis bilateral; fungal infection under both breast Palpation: right breast: multipositional exam no dominate masses or nodules of concern right axilla: no adenopathy of concern left breast: multipositional exam no dominate masses or nodules of concern left axilla: no adenopathy of concern Results mammogram and ultrasound reviewed independently Assessment and Plan Assessment: Impression: 1. Stage IA invasive ductal carcinoma right breast T1 N0 M0 ER + [place] HER-2/connor - G1 1. Recent history of brain aneurysm Plan: 1. Right breast needle localization lumpectomy via a reduction mammoplasty incision, sentinel node injection right side, right sentinel node biopsy, possible right axillary node dissection, possible hyperplastic tissue transfer 2. Presentation of case at tumor board 3. Clearance from neurology 4. Clearance from Dr. Raphael Risks and benefits of the procedure were discussed with the patient and her friend. Risks include but are not limited to bleeding, infection, reaction to the anesthetic, possible positive margin right breast for which further resection may be necessary. If her reduction mammoplasty is utilized she may have decreased sensation or loss of the nipple areolar complex. She understands and wishes to proceed with lumpectomy rather than mastectomy. Additionally sentinel node biopsy possible No dissection risk were discussed including bleeding, infection, reaction to the anesthetic, possible lymphedema or decreased sensation to the inner arm. Additionally possible injury to the thoracodorsal or long thoracic nerve were discussed. Patient understand and wishes to proceed CC: Dr. Raphael
== END ==
LOC: WWCWWP 09:52
PROVIDERS: ATTEND Surgery
DX: C50.911 Malignant neoplasm of unspecified site of right female breast (principal); I10 Essential (primary) hypertension; E78.00 Pure hypercholesterolemia, unspecified; E78.5 Hyperlipidemia, unspecified; M19.90 Unspecified osteoarthritis, unspecified site; F41.9 Anxiety disorder, unspecified; F32.A Depression, unspecified; Z86.79 Personal history of other diseases of the circulatory system; Z79.82 Long term (current) use of aspirin

== ENCOUNTER → 2021-10-13 | Outpatient (CLI) | payer MEDICARE ==
[2021-10-13 11:38] VITALS: BP 146/82; PULSE 74; RESP 18; TEMP 97.9
--- NOTE | 2021-10-13 11:58 | P.PN ---
Subjective Progress Note Date: 10/13/21 Principal diagnosis: right breast stgage IA invasive ductal carcinoma 09-08-20 I have talked to the patient today regarding her surgical scheduling. She is presently awaiting clearance from neurosurgery and her neurosurgeon is in [place]. I have talked to the office of Dr. Brasher at to let them know the patient does have a breast cancer and requires surgery. They will contact her early next week and if necessary have one of his partners evaluate her. Her surgery is tentatively scheduled for October 24. Original Note: History of Present Illness Chief Complaint: invasive ductal cancer right breast Darcy is a 66 year old white female seen in consultation for Dr. Raphael regarding an invasive ductal carcinoma in the right breast. A routine screening mammogram was performed on this revealed a 6 x 10 mm high-density spiculated irregular mass in the upper outer quadrant middle position of the right breast the patient subsequently an ultrasound of the right breast on . Ultrasound revealed a 0.6 x 0.8 cm lesion at 11:00. This was felt to correlate with the mammographic abnormality and biopsy was recommended. Biopsy was performed on [id number] and this revealed an invasive well-differentiated ductal carcinoma grade 1. This is ER/UT positive and HER-2 negative. She had not had any surgery on either breast prior to this biopsy. She was not complaining of any pain in her breast. She's not had any recent trauma or infection in the breast. She is not complaining of any nipple discharge or skin changes in either breast. Caffeine: 1 cup/day nicotine: none chocolate: occasional Family History: paternal cousin: breast cancer Hormonal History: menarche: 12 , breast fed: yes, age at first : 27 menopause: 45 BCP:5 years hormones: none Surgical history: appy partial hysterectomy 44 (bleedine no cancer) right knee brain stint/angiogram 04-28-21; angiogram in September; [facility] Lamb for a brain aneurysm dx. transient global amnesia March 12 Medical History: Cerebral aneurysm/status post stent placement CPAP HTN high cholesterol Social History: nicotine: none, parents smokers alcohol: wine daily drugs: Tried it in the past - Constitutional Constitutional: Denies chills, Denies fever - EENT Eyes: denies blurred vision, denies pain Ears: bilateral: tinnitus Ears, nose, mouth and throat: Reports as per HPI - Breasts Breasts: bilateral: as per HPI - Cardiovascular Cardiovascular: Denies chest pain, Denies shortness of breath - Respiratory Respiratory: Denies cough - Gastrointestinal Gastrointestinal: Denies abdominal pain, Denies diarrhea, Denies nausea, Denies vomiting - Genitourinary (Female) Genitourinary: Denies dysuria, Denies hematuria - Menstruation Menstruation: Reports postmenopausal - Musculoskeletal Musculoskeletal: Denies myalgias - Integumentary Integumentary: Denies pruritus, Denies rash - Neurological Neurological: Reports as per HPI - Psychiatric Psychiatric: Denies anxiety, Denies depression - Endocrine Endocrine: Denies fatigue, Denies weight change - Hematologic/Lymphatic Comment: baby aspirin, was using brilinta - Allergic/Immunologic Allergic/Immunologic: Reports seasonal allergies Past Medical History Past Medical History: Hyperlipidemia, Hypertension, Osteoarthritis (OA) Additional Past Medical History / Comment(s): Uses CPAP for sleep apnea History of Any Multi-Drug Resistant Organisms: None Reported Past Surgical History: Appendectomy, Hysterectomy, Orthopedic Surgery Additional Past Surgical History / Comment(s): RIGHT KNEE SURGERY. Brain stent palced in May 2021 for aneurysm Past Anesthesia/Blood Transfusion Reactions: No Reported Reaction Past Psychological History: Anxiety, Depression Smoking Status: Never smoker Past Alcohol Use History: Daily Additional Past Alcohol Use History / Comment(s): one drink daily Past Drug Use History: None Reported Medications and Allergies Home Medications Medication Instructions Recorded Confirmed Type Beet Root Cap 1 cap PO DAILY 03/12/21 08/18/21 History Cholecalciferol [Vitamin D3 (25 25 mcg PO DAILY 03/12/21 08/18/21 History Mcg = 1000 Iu)] Deep Sleep Tab 1 tab PO HS 03/12/21 08/18/21 History L.acidoph,Paracasei, B.lactis 1 cap PO DAILY 03/12/21 08/18/21 History [Probiotic] Magnesium Oxide [Mag-Ox] 250 mg PO DAILY 03/12/21 08/18/21 History Multivitamins, Thera [Multivitamin 1 tab PO DAILY 03/12/21 08/18/21 History (formulary)] Quercetin 1 tab PO DAILY 03/12/21 08/18/21 History Ubidecarenone [Co Q-10] 100 mg PO DAILY 03/12/21 08/18/21 History Aspirin 81 mg PO DAILY chew 03/14/21 08/18/21 Rx Fluticasone Nasal [place] [Flonase 2 spray EA NOSTRIL DAILY PRN spr 03/14/21 08/18/21 Rx Nasal [place]] Losartan [Cozaar] 100 mg PO DAILY tab 03/14/21 08/18/21 Rx Lysine [l-Lysine] 600 mg PO DAILY 07/21/21 08/18/21 History Allergies Allergy/AdvReac Type Severity Reaction Status Date / Time No Known Allergies Allergy Verified 08/18/21 10:28 Objective - Vital Signs Vital signs: Vital Signs Temp 97.9 F 10/13/21 11:35 Pulse 74 10/13/21 11:35 Resp 18 10/13/21 11:35 BP 146/82 10/13/21 11:35 Pulse Ox 100 10/13/21 11:35 Intake & Output 10/12/21 10/13/21 10/13/21 18:59 06:59 18:59 Weight 90.718 kg - Exam BMI 37.8 - Constitutional General appearance: Present: cooperative - EENT Eyes: Present: EOMI ENT: Present: hearing grossly normal - Neck Neck: Present: normal ROM - Respiratory Respiratory: bilateral: CTA - Cardiovascular Rhythm: regular Heart sounds: normal: S1, S2 - Gastrointestinal General gastrointestinal: Present: soft - Integumentary Integumentary: Present: normal turgor - Musculoskeletal Musculoskeletal: Present: gait normal - Psychiatric Psychiatric: Present: A&O x's 3, appropriate affect, intact judgment & insight - Additional findings Additional findings: Breast Exam: BRA: 42DD inspection: grade 3 ptosis bilateral; fungal infection under both breast Palpation: right breast: multipositional exam no dominate masses or nodules of concern right axilla: no adenopathy of concern left breast: multipositional exam no dominate masses or nodules of concern left axilla: no adenopathy of concern Assessment and Plan Assessment: Impression: 1. Stage IA invasive ductal carcinoma right breast T1 N0 M0 ER + [place] HER-2/connor - G1 1. Recent history of brain aneurysm Plan: 1. Right breast needle localization lumpectomy via a reduction mammoplasty incision, right sentinel node injection , right sentinel node biopsy, possible right axillary node dissection, possible onco-plastic tissue transfer 2. Presentation of case at tumor board/done 3. Clearance from neurology 4. Clearance from Dr. Raphael Risks and benefits of the procedure were discussed with the patient and her friend. Risks include but are not limited to bleeding, infection, reaction to the anesthetic, possible positive margin right breast for which further resection may be necessary. If her reduction mammoplasty is utilized she may have decreased sensation or loss of the nipple areolar complex. She understands and wishes to proceed with lumpectomy rather than mastectomy. Additionally sentinel node biopsy possible risk were discussed including bleeding, infection, reaction to the anesthetic, possible lymphedema or decreased sensation to the inner arm. Additionally possible injury to the thoracodorsal or long thoracic nerve were discussed. Patient understand and wishes to proceed CC: Dr. Raphael
== END ==
LOC: WWCWWP 10:59
PROVIDERS: ATTEND Surgery
DX: C50.911 Malignant neoplasm of unspecified site of right female breast (principal); Z86.79 Personal history of other diseases of the circulatory system; Z17.0 Estrogen receptor positive status [ER+]; E78.5 Hyperlipidemia, unspecified; I10 Essential (primary) hypertension; M19.90 Unspecified osteoarthritis, unspecified site; F32.A Depression, unspecified; F41.9 Anxiety disorder, unspecified; Z79.82 Long term (current) use of aspirin; Z79.899 Other long term (current) drug therapy

== ENCOUNTER 2021-10-24 08:50 | Day surgery (SDC) | payer MEDICARE ==
[2021-10-20 14:02] VITALS: BMI 40.6
[~2021-10-24 08:50] MED LIST: DEXAMETHASONE SOD PHOSPHATE 4 MG/ML 1 ML VIAL IV ONE; HEPARIN SODIUM,PORCINE/PF 5,000 UNIT/0.5 ML SYRINGE SQ PRN; HYDROmorphone 0.5 MG/0.5 ML SYRINGE IVP PRN; LIDOCAINE 1% (10MG/ML) FOR IV START INTRADERMA PRN; MIDAZOLAM 2 MG/2 ML VIAL IV PRN; ONDANSETRON 4 MG/2 ML VIAL IVP ONE; Pre Op ABX Message 1 EACH MISC MISCELLANE ONE
[2021-10-24] MEDS: LACTATED RINGERS 1,000 ML IV SCH ×2 (09:54→12:12)
[2021-10-24] MEDS ORDERED: ALPRAZolam 0.5 MG TAB ONE (10:07)
[2021-10-24] MEDS ORDERED: ALPRAZolam 0.5 MG TAB PO ONE (10:09)
[2021-10-24] MEDS ORDERED: LIDOCAINE 1% INJ 10MG/ML (20 ML MDV) SQ ONE ×2 (10:59→13:38)
--- NOTE | 2021-10-24 12:14 | NM ---
EXAMINATION TYPE: NM sentinel node injection DATE OF EXAM: 10/24/2021 COMPARISON: 07/06/2021 HISTORY: 66-year-old female biopsy-proven right breast cancer, referred for sentinel node tracer inje ction. Scheduled for lumpectomy and node dissection. TECHNIQUE AND FINDINGS: The procedure of sentinel lymph node injection was explained to the patient. The benefits, alternatives, and risks were discussed. An informed consent was then obtained. Overlying skin is cleaned with sterile alcohol. Following this, 450 uCi Tc99m Tilmanocept was inject ed in the upper outer aspect of the right nipple intradermally. The patient tolerated the procedure well without any immediate complication. The patient was kept in the radiology department for short stay after the procedure and then taken to surgery for surgical p rocedure what is presumed intraoperative gamma probe will be used for sentinel lymph node detection. IMPRESSION: Right breast radiotracer injection for sentinel node localization as above.
[2021-10-24] MEDS ORDERED: LIDOCAINE 1% INJ 10MG/ML (20 ML MDV) ONE (12:20)
[2021-10-24] MEDS ORDERED: ONDANSETRON 4 MG/2 ML VIAL ONE (12:20)
[2021-10-24] MEDS ORDERED: PROPOFOL 10 MG/ML 20 ML VIAL IV ONE (12:20)
[2021-10-24] MEDS ORDERED: HYDROmorphone (PF) 1 MG/ML ONE (12:20)
[2021-10-24] MEDS ORDERED: fentaNYL (PF) 50 MCG/ML 2 ML AMP ONE (12:20)
[2021-10-24] MEDS ORDERED: SUCCINYLCHOLINE CHLORIDE 100 MG/5 ML SYR IV ONE (12:20)
[2021-10-24] MEDS ORDERED: MIDAZOLAM 2 MG/2 ML VIAL ONE (12:20)
[2021-10-24] MEDS ORDERED: SODIUM CHLORIDE 0.9% 100 ML with ceFAZolin 2,000 MG IV ONE ×2 (12:22)
[2021-10-24] MEDS ORDERED: LACTATED RINGERS 1,000 ML IV ONE (15:56)
--- NOTE | 2021-10-24 16:14 | P.OP ---
Date of Procedure: 10/24/21 Preoperative Diagnosis: Stage IA invasive ductal carcinoma right breast/macromastia Postoperative Diagnosis: Same Procedure(s) Performed: Needle localization lumpectomy right breast/sentinel node biopsy/reduction mammoplasty incision Anesthesia: BILL Surgeon: Rachael Rubio Estimated Blood Loss (ml): 25 IV fluids (ml): 1,100 Pathology: other (Breast tissue) Condition: stable Disposition: same day Indications for Procedure: Invasive ductal carcinoma right breast/symptomatic macromastia Operative Findings: Fibrofatty breast tissue Description of Procedure: Patient is a 66-year-old white female diagnosed with invasive ductal carcinoma the right breast. Preoperatively she was seen in the radiology department where needle localization of the cancer was performed. Additionally periareolar i njection of radioactive substance was performed for sentinel node biopsy. The patient then was brought to the preoperative surgical area. In the preoperative surgical area markings were made for a Padron pattern reduction mammoplasty incision. The patient was then brought to the operative suite. Interrogation of the axilla revealed that the patient had traveled to the axilla. The right breast and axilla were prepped and draped in a sterile fashion. Using the Keith counter the area of greatest radioactivity in the right axilla was identified. An incision was made at this site. 2 lymph nodes were identified which were radioactive. These were grasped using Allis clamps and removed. The 10 second count on the first lymph node was 2678, on the second lymph node was 1537. The background 10 second count was 13 after we were assured that hemostasis was attained the tissues were closed using 3-0 Vicryl suture. A running subcuticular Monocryl suture was placed. The area of the breast was approached. A 45 cookie-cutter was utilized to determine where the lines of the new aerola. Utilizing the lines previously drawn in the preoperative area deepithelialization of the skin on for the inferior pedicle was performed. The lines for the skin excision were caught in the skin excision and breast tissue from the medial and lateral triangle of the area of resection were performed. The superior and medial and lateral skin flaps were developed. Upon developing the superior skin flap the which had been placed for localization was identified. Surrounding tissue was excised. Specimen was painted for orientation. Posterior dissection was performed onto the pectoralis major muscle. Radiograph of the specimen revealed the area of concern had been removed. Additional anterior lateral superior and inferior margins were obtained. After assured that hemostasis was attained the wound was well irrigated. The inferior pedicle was secured to the chest wall using 3-0 Vicryl sutures. The skin flaps were brought together and closed using 3-0 Vicryl subcutaneous tissues followed by 4-0 Monocryl. A cookie-cutter #45 had been used to make the skin incision for the location of the area. The area was matured through this and secured using 3-0 Vicryl suture followed by Monocryl and nylon suture. Prior to closure a #10 SARA drain was placed and secured using a nylon suture in the lateral aspect of the incision. The patient tolerated procedure in stable condition. All instrument and sponge counts were correct at the end of the case. Steristrips were placed on the axil betsey incision.
--- NOTE | 2021-10-24 16:17 | P.DS ---
Providers Attending physician: Rachael Rubio Primary care physician: Caesar Raphael Plan - Discharge Summary Discharge Rx Participant: No New Discharge Prescriptions: No Action Multivitamins, Thera [Multivitamin (formulary)] 1 tab PO DAILY Cholecalciferol [Vitamin D3 (25 Mcg = 1000 Iu)] 25 mcg PO DAILY L.acidoph,Paracasei, B.lactis [Probiotic] 1 cap PO DAILY Deep Sleep Tab 1 tab PO HS Losartan [Cozaar] 100 mg PO DAILY tab Lysine [l-Lysine] 600 mg PO DAILY amLODIPine [Norvasc] 5 mg PO HS Immune Boost 1 tab PO DAILY Sonus Complete 1 tab PO DAILY Ascorbic Acid [Vitamin C] 1,000 mg PO DAILY B,C/Folic/Zinc/Copper Ox/Vit E [Stress B-Complex Tablet] 1 each PO DAILY Docusate [Colace] 100 mg PO DAILY [place]-3 Fatty Acids [[place]-3] 1,000 mg PO DAILY Rosuvastatin Calcium 5 mg PO HS Magnesium Oxide [Mag-Ox] 250 mg PO DAILY Ubidecarenone [Co Q-10] 100 mg PO DAILY Quercetin 1 tab PO DAILY Beet Root Cap 1 cap PO DAILY Fluticasone Nasal [place] [Flonase Nasal [place]] 2 spray EA NOSTRIL DAILY PRN spr PRN Reason: Allergy Symptoms Aspirin 81 mg PO DAILY Zinc W/Copper 1 tab PO DAILY Cyanocobalamin (Vitamin B-12) [Vitamin B-12] 2,000 mcg PO DAILY Discharge Medication List Beet Root Cap 1 cap PO DAILY 03/12/21 [History] Cholecalciferol [Vitamin D3 (25 Mcg = 1000 Iu)] 25 mcg PO DAILY 03/12/21 [History] Deep Sleep Tab 1 tab PO HS 03/12/21 [History] L.acidoph,Paracasei, B.lactis [Probiotic] 1 cap PO DAILY 03/12/21 [History] Magnesium Oxide [Mag-Ox] 250 mg PO DAILY 03/12/21 [History] Multivitamins, Thera [Multivitamin (formulary)] 1 tab PO DAILY 03/12/21 [History] Quercetin 1 tab PO DAILY 03/12/21 [History] Ubidecarenone [Co Q-10] 100 mg PO DAILY 03/12/21 [History] Fluticasone Nasal [place] [Flonase Nasal [place]] 2 spray EA NOSTRIL DAILY PRN spr 03/14/21 [Rx] Losartan [Cozaar] 100 mg PO DAILY tab 03/14/21 [Rx] Lysine [l-Lysine] 600 mg PO DAILY 07/21/21 [History] Aspirin 81 mg PO DAILY 08/18/21 [History] amLODIPine [Norvasc] 5 mg PO HS 10/13/21 [History] Ascorbic Acid [Vitamin C] 1,000 mg PO DAILY 10/20/21 [History] B,C/Folic/Zinc/Copper Ox/Vit E [Stress B-Complex Tablet] 1 each PO DAILY 10/20/21 [History] Cyanocobalamin (Vitamin B-12) [Vitamin B-12] 2,000 mcg PO DAILY 10/20/21 [History] Docusate [Colace] 100 mg PO DAILY 10/20/21 [History] Immune Boost 1 tab PO DAILY 10/20/21 [History] [place]-3 Fatty Acids [[place]-3] 1,000 mg PO DAILY 10/20/21 [History] Rosuvastatin Calcium 5 mg PO HS 10/20/21 [History] Sonus Complete 1 tab PO DAILY 10/20/21 [History] Zinc W/Copper 1 tab PO DAILY 10/20/21 [History] Follow up Appointment(s)/Referral(s): Rachael Rubio MD [STAFF PHYSICIAN] - 3 Days Patient Instructions/Handouts: *Surgery [facility] - (Anesthesia) Discharge Instructions Outpatient Surgery Activity/Diet/Wound Care/Special Instructions: do not drive until seen by Dr. Rosales wear bra at all times may shower after 48 hours teach patient drain care, drain and record Q shift and as needed Discharge Disposition: HOME SELF-CARE
[2021-10-24 16:44] VITALS: TEMP 96.8
[2021-10-24 17:05] VITALS: RESP 16
[2021-10-24 17:18] VITALS: PULSE 67
[2021-10-24 17:31] VITALS: BP 131/70
--- NOTE | 2021-10-24 18:39 | MM ---
EXAMINATION TYPE: MG pre op needle loc RT, MG surgical specimen RT DATE OF EXAM: 10/24/2021 COMPARISON: 08/01/2021 CLINICAL HISTORY: 66-year-old female with biopsy-proven right breast cancer referred for needle localization for excision. TECHNIQUE: Needle localization with wire placement and surgical excision of area of concern in the right breast. FINDINGS: The procedure of needle localization with wire placement and than surgical excision was explained to the patient. Benefits, alternatives, and risks were discussed. An informed consent was then obtained. We reviewed the patient's postbiopsy mammogram and noted posterior clip migration, away from the patient's focus of breast cancer at 12:00. CC and lateral views were repeated prior to start of procedure to ensure the focus of breast cancer to be adequately targeted. The shortest pathway for procedure was chosen. Shortest pathway was a superior approach. The overlying skin was prepped and draped in usual sterile fashion. Lidocaine was used as anesthetic into the skin and subcutaneous tissue up to the level of area of concern. A cm needle was used. It was placed via a superior approach under mammographic guidance. Subsequent 90 degrees mammogram show the needle to be in satisfactory position relative to the targeted area. At this point, wire was placed and the needle was withdrawn. The wire was fixed to patient's skin. Images were marked for surgeon. The patient tolerated the procedure well without any immediate complication. The patient was kept in the radiology department for short stay after the procedure and then taken to surgery for surgical excision. Density and wire are identified in specimen mammogram. The migrated clip is also included in the specimen mammogram. The patient was kept in hospital for short stay after the procedure and then discharged home in stable condition. IMPRESSION: Successful, uncomplicated needle localization with wire placement and surgical excision of biopsy-proven 12:00 right breast cancer. The migrated clip is also successfully included in the specimen mammogram (though it was not targeted). Full pathology results to follow. Pathology Results: Malignant A. RIGHT AXILLARY SENTINEL LYMPH NODE #1, BIOPSY: Lymph node negative for metastasis. CK7 and GINETTE immunoperoxidase stains are confirmatory (controls appropriate). B. RIGHT AXILLARY SENTINEL LYMPH NODE #2, BIOPSY: Lymph node negative for metastasis. CK7 and GINETTE immunoperoxidase stains are confirmatory (controls appropriate). C. RIGHT BREAST TISSUE: Benign breast tissue and skin. D. RIGHT BREAST, LUMPECTOMY: Invasive well-differentiated ductal carcinoma (Grade 1), margins negative. See Surgical Pathology Cancer Case Summary. E. RIGHT BREAST, NEW MEDIAL MARGIN, EXCISION: Benign breast tissue. F. RIGHT BREAST, NEW LATERAL MARGIN, EXCISION: Benign breast tissue. G. RIGHT BREAST, NEW INFERIOR MARGIN, EXCISION: Benign breast tissue. H. RIGHT BREAST, NEW SUPERIOR MARGIN, EXCISION: Benign fibroadipose tissue. I. RIGHT BREAST, NEW ANTERIOR MARGIN, EXCISION: Benign breast tissue. Recommendation Surgical consult of the right breast. JAMEE
== END 2021-10-24 18:23 | disposition home or self-care (01) ==
LOC: OR 08:50
PROVIDERS: ATTEND Surgery
DX: C50.911 Malignant neoplasm of unspecified site of right female breast (principal); I10 Essential (primary) hypertension; E78.00 Pure hypercholesterolemia, unspecified; E78.5 Hyperlipidemia, unspecified; Z80.3 Family history of malignant neoplasm of breast; Z90.49 Acquired absence of other specified parts of digestive tract; Z90.710 Acquired absence of both cervix and uterus; G47.33 Obstructive sleep apnea (adult) (pediatric); Z86.79 Personal history of other diseases of the circulatory system; M19.90 Unspecified osteoarthritis, unspecified site; F41.9 Anxiety disorder, unspecified; F32.A Depression, unspecified; Z79.82 Long term (current) use of aspirin; Z79.899 Other long term (current) drug therapy
CPT/HCPCS: 19301; 88342; 88307; 76098; 19281; 38792; 38525; A9520; J2250; J1100; J2405; J0690; J2001; J3010; J1170; J0330; J2704; J1644

== ENCOUNTER → 2021-10-27 | Outpatient (CLI) | payer MEDICARE ==
[2021-10-27 14:30] VITALS: BP 138/87; PULSE 75; RESP 17; TEMP 97.9
--- NOTE | 2021-10-27 14:53 | P.PN ---
Progress Note - Text Progress Note Date: 10/27/21 Darcy is a 66-year-old white female status post right breast lumpectomy and sentinel node biopsy via reduction mammoplasty incision on . Postoperatively she is doing well. She has a SARA drain in place with minimal drainage. Incisions are clean and dry. There is some ecchymosis on the flaps which appears to be resolving. The patient has no complaints at this time. Incisions clean and dry Lungs: Clear Heart: Regular rate and rhythm Impression: Patient doing well postop Patient will follow up next week for most likely drain removal and suture removal Cc: Dr. Raphael
== END ==
LOC: WWCWWP 14:17
PROVIDERS: ATTEND Surgery
DX: Z48.817 Encounter for surgical aftercare following surgery on the skin and subcutaneous tissue (principal)

== ENCOUNTER → 2021-11-02 | Outpatient (CLI) | payer MEDICARE ==
[2021-11-02 13:57] VITALS: BP 167/82; PULSE 86; RESP 17; TEMP 97.5
--- NOTE | 2021-11-02 14:09 | P.PN ---
Progress Note - Text Progress Note Date: 11/02/21 Darcy is a 66-year-old white female status post right breast lumpectomy and sentinel node biopsy via reduction mammoplasty incision on 222 2. Postoperatively she is doing well. She has a SARA drain in place Incisions are clean and dry. A SARA drain stopped functioning yesterday and she developed some fluid which drained that the SARA site. The ecchymosis has improved. SARA output:40 cc of serous fluid Incisions clean and dry Lungs: Clear Heart: Regular rate and rhythm Impression: Patient doing well postop Patient will follow up next week Cc: Dr. Raphael
== END ==
LOC: WWCWWP 13:42
PROVIDERS: ATTEND Surgery
DX: Z09 Encounter for follow-up examination after completed treatment for conditions other than malignant neoplasm (principal); Z98.86 Personal history of breast implant removal; Z98.890 Other specified postprocedural states

== ENCOUNTER → 2021-11-08 | Outpatient (CLI) | payer MEDICARE ==
[2021-11-08 12:30] VITALS: BP 143/84; PULSE 90; RESP 18; TEMP 98.2
--- NOTE | 2021-11-08 13:12 | P.PN ---
Progress Note - Text Progress Note Date: 11/08/21 Darcy is a 66-year-old white female status post right breast lumpectomy and sentinel node biopsy via reduction mammoplasty incision on 222 2. Postoperatively she is doing well. She has a SARA drain in place Incisions are clean and dry. A SARA drain was putting out 20 mL every 2 days. The fluid is serous in nature with some stranding of tissue. She has not had any fever or chills. Incisions clean and dry Lungs: Clear Heart: Regular rate and rhythm Impression: Patient doing well postop SARA drain removed Sutures removed Steri-Strips applied Patient has some mild erythema of the inferior aspect of the medial portion of the flap and is started on Keflex prophylactically Cc: Dr. Raphael
== END ==
LOC: WWCWWP 12:17
PROVIDERS: ATTEND Surgery
DX: L76.82 Other postprocedural complications of skin and subcutaneous tissue (principal)

== ENCOUNTER → 2021-11-24 | Outpatient (CLI) | payer MEDICARE ==
[2021-11-24 13:37] VITALS: BP 133/84; PULSE 83; RESP 18; TEMP 98.5
--- NOTE | 2021-11-24 14:15 | P.PN ---
Progress Note - Text Progress Note Date: 11/24/21 Darcy is a 66-year-old white female status post right breast lumpectomy and sentinel node biopsy via reduction mammoplasty incision on 2221. Postoperatively she is doing well. She has a SARA drain in place Incisions are clean and dry. A SARA drain was putting out 20 mL every 2 days. The fluid is serous in nature with some stranding of tissue. She has not had any fever or chills. Pathology revealed sentinel lymph nodes negative for malignancy and all margins were negative the size of the tumor was 7 mm Incisions clean and dry Lungs: Clear Heart: Regular rate and rhythm Impression: Patient doing well postop Appointment with radiation oncology Appointment with medical oncology Follow-up here in 1 month CC: Dr. Raphael
== END ==
LOC: WWCWWP 12:55
PROVIDERS: ATTEND Surgery
DX: Z09 Encounter for follow-up examination after completed treatment for conditions other than malignant neoplasm (principal); Z98.890 Other specified postprocedural states

== ENCOUNTER → 2021-12-29 | Outpatient (CLI) | payer MEDICARE ==
[2021-12-29 15:42] VITALS: BP 160/76; PULSE 91; RESP 17; TEMP 98.1
--- NOTE | 2021-12-29 15:53 | P.PN ---
Subjective Progress Note Date: 12/29/21 Principal diagnosis: stage IA invasive ductal cancer right breast Chief Complaint: invasive ductal cancer right breast Darcy is a 66 year old white female seen in consultation for Dr. Raphael regarding an invasive ductal carcinoma in the right breast. A routine screening mammogram performed on this revealed a 6 x 10 mm high-density spiculated irregular mass in the upper outer quadrant middle position of the right breast the patient subsequently an ultrasound of the right breast on . Ultrasound revealed a 0.6 x 0.8 cm lesion at 11:00. This was felt to correlate with the mammographic abnormality and biopsy was recommended. Biopsy was performed on [id number] and this revealed an invasive well-differentiated ductal carcinoma grade 1. This is ER/[place] positive and HER-2 negative. Is not had any surgery on either breast prior to this biopsy. She is not complaining of any pain in her breast. She's not had any recent trauma or infection in the breast. She is not complaining of any nipple discharge or skin changes in either breast. The patient on 10-04-21 underwent a lumpectomy and SNB. Margins (-), and SNB (-). Note from 12-13-[address] Duvall awaiting oncotype, will need hormone therapy Note from Dr. Babcock 12-11-21 noted will be starting radiation shortly Caffeine: 1 cup/day nicotine: none chocolate: occasional Family History: paternal cousin: breast cancer Hormonal History: menarche: 12 , breast fed: yes, age at first : 27 menopause: 45 BCP:5 years hormones: none Surgical history: appy partial hysterectomy 44 (bleedine no cancer) right knee brain stint/angiogram 04-28-21; angiogram in September; [facility] for a brain aneurysm dx. transient global amnesia March 12 Medical History: Cerebral aneurysm/status post stent placement CPAP HTN high cholesterol Social History: nicotine: none, parents smokers alcohol: wine daily drugs: Tried it in the past - Constitutional Constitutional: Denies chills, Denies fever - EENT Eyes: denies blurred vision, denies pain Ears: bilateral: tinnitus Ears, nose, mouth and throat: Reports as per HPI - Breasts Breasts: bilateral: as per HPI - Cardiovascular Cardiovascular: Denies chest pain, Denies shortness of breath - Respiratory Respiratory: Denies cough - Gastrointestinal Gastrointestinal: Denies abdominal pain, Denies diarrhea, Denies nausea, Denies vomiting - Genitourinary (Female) Genitourinary: Denies dysuria, Denies hematuria - Menstruation Menstruation: Reports postmenopausal - Musculoskeletal Musculoskeletal: Denies myalgias - Integumentary Integumentary: Denies pruritus, Denies rash - Neurological Neurological: Reports as per HPI - Psychiatric Psychiatric: Denies anxiety, Denies depression - Endocrine Endocrine: Denies fatigue, Denies weight change - Hematologic/Lymphatic Comment: baby aspirin, was using brilinta - Allergic/Immunologic Allergic/Immunologic: Reports seasonal allergies Past Medical History Past Medical History: Hyperlipidemia, Hypertension, Osteoarthritis (OA) Additional Past Medical History / Comment(s): Uses CPAP for sleep apnea History of Any Multi-Drug Resistant Organisms: None Reported Past Surgical History: Appendectomy, Hysterectomy, Orthopedic Surgery Additional Past Surgical History / Comment(s): RIGHT KNEE SURGERY. Brain stent palced in May 2021 for aneurysm Past Anesthesia/Blood Transfusion Reactions: No Reported Reaction Past Psychological History: Anxiety, Depression Smoking Status: Never smoker Past Alcohol Use History: Daily Additional Past Alcohol Use History / Comment(s): one drink daily Past Drug Use History: None Reported Medications and Allergies Home Medications Medication Instructions Recorded Confirmed Type Beet Root Cap 1 cap PO DAILY 03/12/21 08/18/21 History Cholecalciferol [Vitamin D3 (25 25 mcg PO DAILY 03/12/21 08/18/21 History Mcg = 1000 Iu)] Deep Sleep Tab 1 tab PO HS 03/12/21 08/18/21 History L.acidoph,Paracasei, B.lactis 1 cap PO DAILY 03/12/21 08/18/21 History [Probiotic] Magnesium Oxide [Mag-Ox] 250 mg PO DAILY 03/12/21 08/18/21 History Multivitamins, Thera [Multivitamin 1 tab PO DAILY 03/12/21 08/18/21 History (formulary)] Quercetin 1 tab PO DAILY 03/12/21 08/18/21 History Ubidecarenone [Co Q-10] 100 mg PO DAILY 03/12/21 08/18/21 History Aspirin 81 mg PO DAILY chew 03/14/21 08/18/21 Rx Fluticasone Nasal [place] [Flonase 2 spray EA NOSTRIL DAILY PRN spr 03/14/21 08/18/21 Rx Nasal [place]] Losartan [Cozaar] 100 mg PO DAILY tab 03/14/21 08/18/21 Rx Lysine [l-Lysine] 600 mg PO DAILY 07/21/21 08/18/21 History Allergies Allergy/AdvReac Type Severity Reaction Status Date / Time No Known Allergies Allergy Verified 08/18/21 10:28 Impression: 1. Stage IA invasive ductal carcinoma right breast T1 N0 M0 ER + [place] HER-2/connor - G1 1. Recent history of brain aneurysm Plan: 1. Right breast needle localization lumpectomy via a reduction mammoplasty incision, sentinel node injection right side, right sentinel node biopsy, possible right axillary node dissection, possible hyperplastic tissue transfer 2. Presentation of case at tumor board 3. Clearance from neurology 4. Clearance from Dr. Raphael Risks and benefits of the procedure were discussed with the patient and her friend. Risks include but are not limited to bleeding, infection, reaction to the anesthetic, possible positive margin right breast for which further resection may be necessary. If her reduction mammoplasty is utilized she may have decreased sensation or loss of the nipple areolar complex. She understands and wishes to proceed with lumpectomy rather than mastectomy. Additionally sentinel node biopsy possible No dissection risk were discussed including bleeding, infection, reaction to the anesthetic, possible lymphedema or decreased sensation to the inner arm. Additionally possible injury to the thoracodorsal or long thoracic nerve were discussed. Patient understand and wishes to proceed CC: Dr. Raphael Additional CC's: Caesar Raphael Objective - Exam BMI: 40.6 - Constitutional General appearance: Present: cooperative - EENT Eyes: Present: EOMI ENT: Present: hearing grossly normal - Neck Neck: Present: normal ROM - Respiratory Respiratory: bilateral: CTA - Cardiovascular Rhythm: regular Heart sounds: normal: S1, S2 - Integumentary Integumentary: Present: normal turgor - Musculoskeletal Musculoskeletal: Present: gait normal - Psychiatric Psychiatric: Present: A&O x's 3, appropriate affect, intact judgment & insight - Additional findings Additional findings: Breast Exam: BRA: 42DD inspection: right breast grade 2 ptosis, left breast grade 3 ptosis; symmetric secondary to recent surgery Palpation: Right breast: Postop changes, no dominant masses or nodules of concern Right axilla: No adenopathy of concern Left breast: Positional exam. Fibrocystic changes no dominant masses or nodules of concern Left axilla: No adenopathy of concern Assessment and Plan Assessment: Impression: 1. Stage IA invasive ductal carcinoma right breast T1 N0 M0 ER + [place] HER-2/connor - G1 1. Recent history of brain aneurysm Plan: 1. Stage IA invasive ductal carcinoma right breast T1 N0 M0 ER + [place] HER-2/connor - G1 2. Recent history of brain aneurysm 3. Radiation therapy 4. Follow with medical oncology 5. Follow-up here in 4 months 6. Patient would like to have a symmetry procedure done on the left breast which will be done after her radiation therapy is completed CC: Dr. Raphael Additional CC's: Caesar Raphael
== END ==
LOC: WWCWWP 15:19
PROVIDERS: ATTEND Surgery
DX: C50.911 Malignant neoplasm of unspecified site of right female breast (principal); I67.1 Cerebral aneurysm, nonruptured; I10 Essential (primary) hypertension; E78.00 Pure hypercholesterolemia, unspecified; E78.5 Hyperlipidemia, unspecified; M19.90 Unspecified osteoarthritis, unspecified site; F41.9 Anxiety disorder, unspecified; F32.A Depression, unspecified

== ENCOUNTER → 2022-03-13 | Outpatient (CLI) | payer MEDICARE ==
--- NOTE | 2022-03-13 11:46 | XR ---
EXAMINATION TYPE: XR chest 2V DATE OF EXAM: 03/13/2022 11:35 AM COMPARISON: Chest radiographs from 03/12/2021 TECHNIQUE: XR chest 2V Frontal and lateral views of the chest. CLINICAL INDICATION:Female, 66 years old with history of SHORTNESS OF BREATH; FINDINGS: Lungs/Pleura: There is no evidence of pleural effusion, focal consolidation, or pneumothorax. Pulmonary vascularity: Unremarkable. Heart/mediastinum: Cardiomediastinal silhouette is unremarkable. Musculoskeletal: No acute osseous pathology. IMPRESSION: No acute cardiopulmonary disease/process.
== END | disposition home or self-care (01) ==
LOC: RADXRMAIN 11:20
PROVIDERS: ATTEND Internal Medicine
DX: R06.02 Shortness of breath (principal)
CPT/HCPCS: 71046

== ENCOUNTER → 2022-04-02 | Outpatient (CLI) | payer MEDICARE ==
--- NOTE | 2022-04-02 18:31 | BD ---
EXAMINATION TYPE: Axial Bone Density DATE OF EXAM: 04/02/2022 COMPARISON: 09/27/2015 CLINICAL HISTORY: 66 years year old Female. ICD-10 CODE: C50.411 MALIG NEOPLM OF UPPER-OUTER QUAD OF RT FEM Height: 59.5 IN Weight: 214 LBS FRAX RISK QUESTIONS: History of Fracture in Adulthood: RT FOOT FX AGE 58; RT WRIST FX AGE 53 PARENT HAD HIP FX RISK FACTORS HISTORY OF: Active: YES Postmenopausal woman: AGE 45 PARTIAL HYST Lost more than 2 inches in height since high school: YES 3" MEDICATIONS: Additional Medications: VIT D, AMLODIPINE, B12,LOSARTAN, LYSINE, MAGNESIUM, MULTI VIT, ROSUVASTATIN, LETROZOLE Additional History: BREAST CANCER WITH RADIATION EXAM MEASUREMENTS: Bone mineral densitometry was performed using the [employer] System. Bone mineral density as measured about the Lumbar spine is: ----- L1-L4(G/cm2): 1.195 T Score Values are as follows: ----- L1: -0.4 ----- L2: -0.6 ----- L3: 0.6 ----- L4: 0.9 ----- L1-L4: 0.1 Bone mineral density has: Increased 3.1% since study of: 09/27/2015 Bone mineral density about the R hip (g/cm2): 0.960 Bone mineral density about the L hip (g/cm2): 0.940 T Score values are as follows: -----R Neck: -0.6 -----L Neck: -0.7 -----R Total: 0.0 -----L Total: 0.0 Bone mineral density has: Decreased -2.1% since study of: 09/27/2015 FRAX%s: The graph provided illustrates a 19.2 chance for a major osteoporotic fx and a 1.5 chance for the hips probability for fx in 10 years time. IMPRESSION: Normal (Values between +1 and -1 indicate normal bone mass). Consider repeating this study in 5 year s or sooner if there is some new clinical indication. NOTE: T-SCORE=SD OF THE YOUNG ADULT MEAN.
== END | disposition home or self-care (01) ==
LOC: RADBDWWP 16:13
PROVIDERS: ATTEND Internal Medicine Hematology & Oncology
DX: C50.411 Malignant neoplasm of upper-outer quadrant of right female breast (principal); Z78.0 Asymptomatic menopausal state
CPT/HCPCS: 77080

== ENCOUNTER 2022-05-15 07:20 | Day surgery (SDC) | payer MEDICARE ==
[2022-05-14 08:44] VITALS: BMI 38.7
[~2022-05-15 07:20] MED LIST changes: +LACTATED RINGERS 1,000 ML IV SCH; -MIDAZOLAM 2 MG/2 ML VIAL IV PRN; -ONDANSETRON 4 MG/2 ML VIAL IVP ONE; +SCOPOLAMINE 1 MG/72 HR PATCH TRANSDERM ONE
[2022-05-15] MEDS ORDERED: ONDANSETRON 4 MG/2 ML VIAL ONE (08:20)
[2022-05-15] MEDS ORDERED: PROPOFOL 10 MG/ML 20 ML VIAL IV ONE (08:25)
[2022-05-15] MEDS ORDERED: fentaNYL (PF) 50 MCG/ML 2 ML AMP ONE (08:25)
[2022-05-15] MEDS ORDERED: MIDAZOLAM 2 MG/2 ML VIAL ONE (08:25)
[2022-05-15] MEDS ORDERED: LIDOCAINE 2% INJ 20 MG/ML (2 ML VIAL) ONE (08:25)
[2022-05-15] MEDS ORDERED: HYDROmorphone (PF) 1 MG/ML ONE (08:25)
[2022-05-15] MEDS ORDERED: SUCCINYLCHOLINE CHLORIDE 200 MG/10 ML VIAL IV ONE (08:25)
--- NOTE | 2022-05-15 11:15 | P.OP ---
Date of Procedure: 05/15/22 Preoperative Diagnosis: Asymmetry/macromastia left breast symptomatic Postoperative Diagnosis: Same/prior right breast cancer treated with reduction mammoplasty approach Procedure(s) Performed: Left breast reduction mammoplasty Anesthesia: BILL Surgeon: Rachael Rubio Estimated Blood Loss (ml): 20 IV fluids (ml): 1,000 Pathology: other (Left breast tissue) Condition: stable Disposition: same day Indications for Procedure: Symptomatic macromastia left breast patient status post right lumpectomy for invasive ductal carcinoma; asymmetry secondary to treatment for cancer Operative Findings: Fibrofatty breast tissue Description of Procedure: The patient was seen in the preoperative area and was standing markings were made for reduction mammoplasty on the left. She was then brought to the o perative suite and following induction of anesthesia the left and right breast were prepped and draped in a sterile fashion. A 50 cookie-cutter which mass the size of the areolar complex on the right was utilized to delineate the areolar complex on the left. Prior to beginning dissection the area of the area is going to come together was marked using a nylon suture. The longitudinal incision was marked using a nylon suture. This was to help approximating the tissues after the dissection. Using the prior markings the inferior skin pedicle was de-epithelialized. Following this using the skin markings the dissection was performed to resect the breast tissue. The location of the nipple areolar complex opening was dissected down to the pectoralis muscle.. Hemostasis was attained using electrocautery device as well as the Harmonic scalpel. Any larger vessels were suture ligated. Laterally the V-shaped tissue was removed. Subcu tissue was removed down to the pectoralis muscle. Medial and lateral skin flaps were developed. The skin flaps were brought together using 3-0 Vicryl suture. The subcutaneous tissue was approximated using a running 3-0 subcutaneous suture. A subcuticular 4-0 Monocryl suture was placed. Prior to beginning the skin flaps together 2 SARA drains were placed and laterally. These were secured using nylon suture. The skin was reapproximated using running 4-0 nylon suture. The patient tolerated the procedure in stable condition. All instrument and sponge counts were correct at the end of the case. The weight of breast tissue removed was 1.42 pounds.
--- NOTE | 2022-05-15 11:17 | P.DS ---
Providers Attending physician: Rachael Rubio Primary care physician: Caesar Raphael Plan - Discharge Summary Discharge Rx Participant: Yes New Discharge Prescriptions: No Action Multivitamins, Thera [Multivitamin (formulary)] 1 tab PO DAILY Cholecalciferol [Vitamin D3 (25 Mcg = 1000 Iu)] 25 mcg PO DAILY Deep Sleep Tab 1 tab PO HS Losartan [Cozaar] 100 mg PO DAILY tab Lysine [l-Lysine] 600 mg PO DAILY amLODIPine [Norvasc] 5 mg PO HS Ascorbic Acid [Vitamin C] 1,000 mg PO DAILY Docusate [Colace] 100 mg PO DAILY [place]-3 Fatty Acids [[place]-3] 1,000 mg PO DAILY Rosuvastatin Calcium 5 mg PO HS Letrozole [Femara] 2.5 mg PO DAILY Multivit-Min/Folic Acid/Biotin [Hair, Skin and Nails Softgel] 133.3 mcg PO DAILY Magnesium Oxide [Mag-Ox] 250 mg PO DAILY Quercetin 1 tab PO DAILY PRN PRN Reason: ALLERGIES Fluticasone Nasal [place] [Flonase Nasal [place]] 2 spray EA NOSTRIL DAILY PRN spr PRN Reason: Allergy Symptoms Aspirin 81 mg PO DAILY Cyanocobalamin (Vitamin B-12) [Vitamin B-12] 2,000 mcg PO DAILY Discharge Medication List Cholecalciferol [Vitamin D3 (25 Mcg = 1000 Iu)] 25 mcg PO DAILY 03/12/21 [History] Deep Sleep Tab 1 tab PO HS 03/12/21 [History] Magnesium Oxide [Mag-Ox] 250 mg PO DAILY 03/12/21 [History] Multivitamins, Thera [Multivitamin (formulary)] 1 tab PO DAILY 03/12/21 [History] Quercetin 1 tab PO DAILY PRN 03/12/21 [History] Fluticasone Nasal [place] [Flonase Nasal [place]] 2 spray EA NOSTRIL DAILY PRN spr 03/14/21 [Rx] Losartan [Cozaar] 100 mg PO DAILY tab 03/14/21 [Rx] Lysine [l-Lysine] 600 mg PO DAILY 07/21/21 [History] Aspirin 81 mg PO DAILY 08/18/21 [History] amLODIPine [Norvasc] 5 mg PO HS 10/13/21 [History] Ascorbic Acid [Vitamin C] 1,000 mg PO DAILY 10/20/21 [History] Cyanocobalamin (Vitamin B-12) [Vitamin B-12] 2,000 mcg PO DAILY 10/20/21 [History] Docusate [Colace] 100 mg PO DAILY 10/20/21 [History] [place]-3 Fatty Acids [[place]-3] 1,000 mg PO DAILY 10/20/21 [History] Rosuvastatin Calcium 5 mg PO HS 10/20/21 [History] Letrozole [Femara] 2.5 mg PO DAILY 04/26/22 [History] Multivit-Min/Folic Acid/Biotin [Hair, Skin and Nails Softgel] 133.3 mcg PO DAILY 05/14/22 [History] Follow up Appointment(s)/Referral(s): Rachael Rubio MD [STAFF PHYSICIAN] - 05/24/22 12:40 pm Activity/Diet/Wound Care/Special Instructions: teach patient drain care, drain and record BId and as needed may shower after [address] until seen by DR. Rosales Discharge Disposition: HOME SELF-CARE
[2022-05-15 11:55] VITALS: TEMP 96.9
[2022-05-15] MEDS ORDERED: HYDROcodone/APAP 5-325MG 1 EACH TAB ONE (12:46)
[2022-05-15] MEDS ORDERED: HYDROcodone/APAP 5-325MG 1 EACH TAB PO ONE (12:50)
[2022-05-15 13:05] VITALS: BP 136/78; PULSE 78; RESP 20
[2022-05-15] MEDS ORDERED: ONDANSETRON ODT 4 MG TAB PO ONE (13:47)
== END 2022-05-15 13:49 | disposition home or self-care (01) ==
LOC: OR 07:20
PROVIDERS: ATTEND Surgery
DX: N65.1 Disproportion of reconstructed breast (principal); C50.911 Malignant neoplasm of unspecified site of right female breast; Z17.0 Estrogen receptor positive status [ER+]; I10 Essential (primary) hypertension; G45.4 Transient global amnesia; E78.00 Pure hypercholesterolemia, unspecified; E78.5 Hyperlipidemia, unspecified; M19.90 Unspecified osteoarthritis, unspecified site; G47.33 Obstructive sleep apnea (adult) (pediatric); F41.9 Anxiety disorder, unspecified; F32.A Depression, unspecified; Z86.79 Personal history of other diseases of the circulatory system; Z90.49 Acquired absence of other specified parts of digestive tract; Z90.710 Acquired absence of both cervix and uterus; Z98.890 Other specified postprocedural states; Z79.82 Long term (current) use of aspirin; Z79.899 Other long term (current) drug therapy
CPT/HCPCS: 19380; 88305; J2250; J0330; J1100; J2405; J3010; J1170; J2704; J1644; J2001

== ENCOUNTER → 2022-05-24 | Outpatient (CLI) | payer MEDICARE ==
[2022-05-24 12:51] VITALS: BP 113/76; PULSE 99; RESP 17; TEMP 98.5
--- NOTE | 2022-05-24 13:01 | P.PN ---
Progress Note - Text Progress Note Date: 05/24/22 Darcy is a 67 year old white female status post [place] [id number]. Pathology revealed benign breast tissue and skin. The patient is doing well at this time. Her SARA drain output is less than 30 mL for each drain. It is serous in nature. Examination: Incision clean and dry SARA output is serous Heart: Regular rate and rhythm Lungs: Clear Plan: DC SARA drains Remove sutures and Steri-Strips applied Plan: follow up 1 week bilateral mammogram in 4 months ith appointment follow up medical and radiation oncology CC: Dr. Raphael
== END ==
LOC: WWCWWP 12:38
PROVIDERS: ATTEND Surgery
DX: L76.82 Other postprocedural complications of skin and subcutaneous tissue (principal); D24.2 Benign neoplasm of left breast

== ENCOUNTER → 2022-05-31 | Outpatient (CLI) | payer MEDICARE ==
[2022-05-31 09:18] VITALS: BP 128/78; PULSE 98; RESP 18; TEMP 98.6
--- NOTE | 2022-05-31 09:35 | P.PN ---
Progress Note - Text Progress Note Date: 05/31/22 Darcy is a 67 year old white female status post [place] [id number]. Pathology revealed benign breast tissue and skin. The patient is doing well at this time. Her SARA drain was removed last week. She has developed some swelling and erythema of the right breast. She has not had any fever. Examination: Incision clean and dry Swelling and erythema medial aspect of the left breast Heart: Regular rate and rhythm Lungs: Clear Plan: ultrasound of the left breast rule out seroma Plan: follow up 1 week follow up medical and radiation oncology CC: Dr. Raphael
--- NOTE | 2022-05-31 10:28 | USB ---
Patient History: Menarche at age 12. First Full-Term at age 27. Hysterectomy at age 41. Postmenopausal. Breast cancer, age 66. Hormonal Contraceptives for 5 years from age 20 until age 25. 10/24/2021, Lumpectomy on the Right side. 10/24/2021, Malignant Core Biopsy on the right side. 08/01/2021, Malignant Core Biopsy on the right side. Maternal cousin had breast cancer. Prior Study Comparison: 07/03/2021 Bilateral Screening Mammogram, [facility]. 07/06/2021 Right Diagnostic Mammogram, [facility]. 08/01/2021 Right Diagnostic Mammogram, [facility]. Findings: Patient complains of redness of right breast and chills. There is a 11.9 x 5.5 x 10.6 cm hypoechoic collection at the area of redness. Abscess formation is suspected. Hematoma is considered within the differential. Overall Assessment: Suspicious, BI-RAD 4 Management: Aspiration of the right breast. A clinical breast exam by your physician is recommended on an annual basis and results should be correlated with mammographic findings. Electronically signed and approved by: Jesús Ennis D.O. Radiologis
== END ==
LOC: WWCWWP 09:02
PROVIDERS: ATTEND Surgery
DX: N64.4 Mastodynia (principal); Z85.3 Personal history of malignant neoplasm of breast
CPT/HCPCS: 76942

== ENCOUNTER → 2022-05-31 | Day surgery (SDC) | payer MEDICARE | LOC: RADUSWWP 10:57 | PROVIDERS: ATTEND Surgery | DX: N63.21 Unspecified lump in the left breast, upper outer quadrant (principal); N61.1 Abscess of the breast and nipple; Z85.3 Personal history of malignant neoplasm of breast | CPT/HCPCS: 87070; 87075; 87077; 87186; 87205; 88173; 88305 ==

== ENCOUNTER → 2022-06-01 | Outpatient (CLI) | payer MEDICARE ==
[2022-06-01 08:18] VITALS: BP 135/77; PULSE 93; RESP 17; TEMP 98.8
--- NOTE | 2022-06-01 08:30 | P.PN ---
Progress Note - Text Progress Note Date: 06/01/22 Darcy is a 67 year old white female status post [place] breast [place] mamm[place] [id number]. Pathology revealed benign breast tissue and skin. The patient was seen yesterday with some erythema and swelling of the left breast in the medial aspect. An ultrasound was performed and approximately 290 mL of turbid fluid was removed. She was started on Keflex. At this time the swelling has not recurred. Cultures are pending. The erythema has markedly decreased. She states she is not having any pain. She has not had any fever or chills. Examination: Incision clean and dry Swelling and erythema medial aspect of the left breast has markedly reduced Heart: Regular rate and rhythm Lungs: Clear Plan: Continue antibiotics/await cultures I discussed with the patient that I will be gone until June 12. Dr. Pope is covering in my place. Should she have any concerns Anya [facility] has been brought in to evaluate the left breast incisions with me. She understands that should Darcy have any questions that Dr. Pope is covering. Additionally she will be watching for the culture and sensitivities showed the antibiotics need to be changed. The patient also understands that should she have any concerns or questions after hours that she should go to the emergency room. follow up June 12 follow up medical and radiation oncology
== END | disposition home or self-care (01) ==
LOC: WWCWWP 08:01
PROVIDERS: ATTEND Surgery
DX: Z53.9 Procedure and treatment not carried out, unspecified reason (principal)

== ENCOUNTER → 2022-07-05 | Outpatient (CLI) | payer MEDICARE ==
[2022-07-05 09:24] VITALS: BP 125/85; PULSE 78; RESP 18; TEMP 97.9
--- NOTE | 2022-07-05 09:41 | P.PN ---
Progress Note - Text Progress Note Date: 07/05/22 Darcy is a 67 year old white female status post left breast reduction mammoplasty on . Pathology revealed benign breast tissue and skin. The patient was seen post op with some erythema and swelling of the left breast in the medial aspect. An ultrasound was performed and approximately 290 mL of turbid fluid was removed. She was started on Keflex. Cultures were + for gm + probable staph sensitive to cefazolin. She had some spontaneous drainage of the area which is since stopped and has not had any fever or chills. This time she is not having any further drainage or concerns related to the left breast. Examination: Incision clean and dry No swelling or erythema of concern Heart: Regular rate and rhythm Lungs: Clear Plan: The patient at this time is doing well with no evidence of infection. The patient is on hormone therapy She is scheduled for a bilateral mammogram on September and will follow up at that time Follow up with Dr. Duvall CC: Dr. Raphael
== END | disposition home or self-care (01) ==
LOC: WWCWWP 09:04
PROVIDERS: ATTEND Surgery
DX: Z53.9 Procedure and treatment not carried out, unspecified reason (principal)

== ENCOUNTER → 2022-08-31 | Outpatient (CLI) | payer MEDICARE ==
--- NOTE | 2022-08-31 09:21 | US ---
EXAMINATION TYPE: US liver DATE OF EXAM: 08/31/2022 COMPARISON: NONE CLINICAL HISTORY: R74.8 ABN LEVELS OF OTHER SERUM ENZYMES. elevated labs, no symptoms TECHNIQUE: Multiple sonographic images of the right upper quadrant are obtained. FINDINGS: EXAM MEASUREMENTS: Liver Length: 16.5 cm Gallbladder Wall: 0.3 cm CBD: 0.4 cm Right Kidney: 9.8 x 4.0 x 5.0 cm Pancreas: wnl Liver: multiple cyst within liver, some septated, largest in left lobe = 3.4 x 3.2 x 3.0 cm. Hetero genous hyperechoic echotexture. Noncirrhotic morphology. Gallbladder: wnl. No pericholecystic fluid, wall thickening, shadowing gallstones. Evidence for sonographic Galvez's sign: no CBD: wnl Right Kidney: wnl . No hydronephrosis, shadowing calculi, or solid contour deforming mass. IMPRESSION: 1. No acute process. 2. Hepatic steatosis. 3. Multiple cysts within the liver with some demonstrating thin septation.
== END | disposition home or self-care (01) ==
LOC: RADUSWWP 07:21
PROVIDERS: ATTEND Family Medicine
DX: K76.0 Fatty (change of) liver, not elsewhere classified (principal); R74.8 Abnormal levels of other serum enzymes; K76.89 Other specified diseases of liver
CPT/HCPCS: 76705

== ENCOUNTER → 2022-09-27 | Outpatient (CLI) | payer MEDICARE ==
--- NOTE | 2022-09-27 15:22 | MM ---
Reason for Exam: Clinical finding. Last mammogram was performed 1 year(s) and 2 month(s) ago. Patient History: Menarche at age 12. First Full-Term at age 27. Hysterectomy at age 41. Postmenopausal. Breast cancer, age 66. Hormonal Contraceptives for 5 years from age 20 until age 25. 05/31/2022, Benign US breast aspiration single LT on the left side. 10/24/2021, Lumpectomy on the Right side. 10/24/2021, Malignant Core Biopsy on the right side. 08/01/2021, Malignant Core Biopsy on the right side. Maternal cousin had breast cancer. Tissue Density: There are scattered fibroglandular densities. Findings: Analyzed By CAD. Interval postsurgical and posttreatment changes in the right breast. There has also been surgery on the left breast with reduction mammoplasty. New areas of bilateral asymmetric density likely postsurgical change. No definite persisting abnormality on 3-D images. Reassess in 6 months given the extensive changes. Overall Assessment: Probably benign, BI-RAD 3 Management: Diagnostic Mammogram of both breasts in 6 months. On the right, to assess for any evolving posttreatment change. On the left, to ensure stability of new densities after reduction mammoplasty. Results were given to the patient verbally at the time of exam. Electronically signed and approved by: Magalie Liang M.D. Radiologist
== END | disposition home or self-care (01) ==
LOC: RADMAMWWP 14:54
PROVIDERS: ATTEND Surgery
DX: Z85.3 Personal history of malignant neoplasm of breast (principal); Z78.0 Asymptomatic menopausal state; Z80.3 Family history of malignant neoplasm of breast
CPT/HCPCS: 77066; G0279; 77062

== ENCOUNTER → 2023-04-01 | Outpatient (CLI) | payer MEDICARE | END | disposition home or self-care (01) | LOC: RADECHMAIN 07:58 | PROVIDERS: ATTEND Family Medicine | DX: Z53.9 Procedure and treatment not carried out, unspecified reason (principal) ==

== ENCOUNTER → 2023-04-01 | Outpatient (CLI) | payer MEDICARE ==
--- NOTE | 2023-04-01 08:46 | MM ---
Reason for Exam: Follow-up at short interval from prior study. Last screening mammogram was performed 6 month(s) ago. Patient History: Menarche at age 12. First Full-Term at age 27. Hysterectomy at age 41. Postmenopausal. Patient has history of breast feeding. Breast cancer, right, age 66. Hormonal Contraceptives for 5 years from age 20 until age 25. 02/14/2022, Reduction on the Left side. 09/16/2021, Reduction on the Right side. 05/31/2022, Benign US breast aspiration single LT on the left side. 10/24/2021, Lumpectomy on the Right side. 10/24/2021, Malignant Core Biopsy on the right side. 08/01/2021, Malignant Core Biopsy on the right side. Maternal cousin had breast cancer, age 58. Prior Study Comparison: 08/06/2019 Bilateral Diagnostic Mammogram, [facility]. 07/03/2021 Bilateral Screening Mammogram, [facility]. 09/27/2022 Bilateral MG 3D diag mammo w/cad [facility], [facility]. Tissue Density: The breast tissue is heterogeneously dense. This may lower the sensitivity of mammography. Findings: Analyzed By CAD. Right breast surgical clips. Stable densities in the bilateral breasts. No new suspicious masses, calcifications or distortions. Overall Assessment: Benign, BI-RAD 2 Management: Diagnostic Mammogram of both breasts in 1 year. Results were given to the patient verbally at the time of exam. Patient should continue monthly self-breast exams. A clinical breast exam by your physician is recommended on an annual basis. This exam should not preclude additional follow-up of suspicious palpable abnormalities. Note on Eileen scores and lifetime risk: 1. A Eileen score greater than 3% is considered moderate risk. If this is the case, consider specialist referral to assess eligibility for a risk reducing agent. 2. If overall lifetime risk for the development of breast cancer is 20% or higher, the patient may qualify for future screening with alternating mammogram and breast MRI. Electronically signed and approved by: Gurvinder Noel DO
--- NOTE | 2023-04-01 17:14 | CA ---
Transthoracic Echo Report Name: Darcy Venegas Age: 67 Gender: F : 1955 Exam Date: 04/01/2023 10:57 Exam Location: Mobile Echo Ht (in): 61 Wt (lb): 217 Ordering Physician: Rachael Rubio MD Attending/Referring Phys: Crozer Operator Deana Love [facility] Procedure CPT: Indications: I45.19 Cardiac Hx: Technical Quality: Fair Contrast 1: Total Dose (mL): Contrast 2: Total Dose (mL): MEASUREMENTS (Male / Female) Normal Values 2D ECHO LV Diastolic Diameter PLAX 5.3 cm 4.2 - 5.9 / 3.9 - 5.3 cm LV Systolic Diameter PLAX 3.9 cm IVS Diastolic Thickness 0.7 cm 0.6 - 1.0 / 0.6 - 0.9 cm LVPW Diastolic Thickness 0.7 cm 0.6 - 1.0 / 0.6 - 0.9 cm LV Relative Wall Thickness 0.3 LA Volume 60.0 cm??? 18 - 58 / 22 - 52 cm??? M-MODE Aortic Root Diameter MM 2.8 cm LA Systolic Diameter MM 3.8 cm LA Ao Ratio MM 1.3 AV Cusp Separation MM 2.1 cm DOPPLER AV Peak Velocity 151.9 cm/s AV Peak Gradient 9.2 mmHg AV Mean Velocity 104.3 cm/s AV Mean Gradient 5.0 mmHg AV Velocity Time Integral 32.2 cm AI Peak Velocity 459.3 cm/s AI Peak Gradient 84.4 mmHg AI Pressure Half Time 673.3 ms LVOT Peak Velocity 127.0 cm/s LVOT Peak Gradient 6.5 mmHg LVOT Velocity Time Integral 30.2 cm MV Area PHT 3.2 cm??? Mitral E Point Velocity 81.5 cm/s Mitral A Point Velocity 108.7 cm/s Mitral E to A Ratio 0.8 MV Deceleration Time 238.6 ms LV E' Lateral Velocity 4.4 cm/s Mitral E to LV E' Lateral Ratio 18.6 LV E' Septal Velocity 5.4 cm/s Mitral E to LV E' Septal Ratio 15.0 TR Peak Velocity 225.2 cm/s TR Peak Gradient 20.3 mmHg Right Atrial Pressure 3.0 mmHg Pulmonary Artery Systolic Pressu 23.3 mmHg Right Ventricular Systolic Press 25.3 mmHg FINDINGS Left Ventricle Normal Left ventricular size, wall thickness, systolic function with no obvious regional wall motion abnormalities. Left ventricular ejection fraction is estimated at 50-55%. Right Ventricle Mild right ventricular dilatation. Right Atrium Mild right atrial dilatation. Left Atrium Mild left atrial dilatation. Mitral Valve Structurally normal mitral valve. Trace mitral regurgitation. Aortic Valve Aortic valve not well visualized. Mild aortic regurgitation. Tricuspid Valve Structurally normal tricuspid valve. Mild tricuspid regurgitation. Pulmonic Valve Structurally normal pulmonic valve. No pulmonic regurgitation. Pericardium No pericardial effusion. Aorta Normal size aortic root. CONCLUSIONS Left ventricular ejection fraction 50-55% Mild right ventricular dilation Trace mitral regurgitation Mildly dilated left atrium Mild aortic regurgitation Mild tricuspid regurgitation Previewed by: Dr. Khai Smith DO (Electronically Signed) Final Date: 01 April 2023 17:12
== END | disposition home or self-care (01) ==
LOC: RADMAMWWP 07:59
PROVIDERS: ATTEND Surgery
DX: R92.8 Other abnormal and inconclusive findings on diagnostic imaging of breast (principal); I08.3 Combined rheumatic disorders of mitral, aortic and tricuspid valves; Z85.3 Personal history of malignant neoplasm of breast; Z78.0 Asymptomatic menopausal state; Z80.3 Family history of malignant neoplasm of breast
CPT/HCPCS: 93306; 77066; G0279; 77062

== ENCOUNTER → 2023-04-01 | Outpatient (CLI) | payer MEDICARE ==
--- NOTE | 2023-04-01 14:11 | CT ---
EXAMINATION TYPE: CT left knee - [employer] Protocol DATE OF EXAM: 04/01/2023 COMPARISON: None HISTORY: pre op Lt knee surgery CT DLP: 1576 mGycm Automated exposure control for dose reduction was used. Contrast: None Technique: [employer] presurgical planning of the left knee. Images were obtained in the axial plane at 2 m m thick sections through the hip and ankle and 1 mm thick sections through the knee. Reconstructed im ages in the coronal and sagittal plane are reviewed. FINDINGS: Hip: Femoral head articulates with the acetabulum. Mild joint space narrowing is present. No acute fr actures are evident. Knee: No joint effusion is evident. There is narrowing of the patellofemoral joint space. Some patell ar spurring is present medially. There is loss of the lateral compartment joint space. There is narro wing of the medial compartment joint space. Ankle: Ankle appears intact. Joint spaces are preserved. IMPRESSION: 1. CT for [employer] knee presurgical planning.
== END | disposition home or self-care (01) ==
LOC: RADCTMAIN 07:24
PROVIDERS: ATTEND Orthopaedic Surgery
DX: Z01.818 Encounter for other preprocedural examination (principal); M17.12 Unilateral primary osteoarthritis, left knee

== ENCOUNTER → 2023-04-04 | Outpatient (CLI) | payer MEDICARE ==
--- NOTE | 2023-04-04 14:21 | NM ---
EXAMINATION TYPE: NM stress lexiscan cardiolite DATE OF EXAM: 04/04/2023 COMPARISON: NONE CLINICAL INDICATION: Female, 67 years old with history of I45.19 OTHER RIGHT BUNDLE-BRANCH BLOCK; TECHNIQUE: After the intravenous administration of 9.78 mCi Tc 99m Sestamibi - Cardiolite resting SP ECT images acquired 45 minutes post injection. The patient received 0.4mg Lexiscan, 27 mCi Tc 99m Sestamibi - Stress images obtained 30 minutes post injection FINDINGS: Review of stress and rest SPECT images demonstrates fixed defect along the mid to apical anteroseptal wall which is more pronounced on rest suggesting attenuation artifacts. No other distinct perfusion abnormality. Gated analysis shows some possible paradoxical septal motion. There is an estimated lef t ventricular ejection fraction of 62 %. TID is calculated at 0.82, within normal limits. IMPRESSION: 1. Fixed defect along the anteroseptal wall is larger on rest suggesting attenuation artifact rather than old infarct. Clinically correlate. Otherwise, no scintigraphic evidence for inducible ischemia. 2. However, there appears to be some paradoxical septal motion. Some differential considerations incl ude left bundle branch block, mitral stenosis, prior cardiac surgery, or some pericardial diseases. C onsider cardiac echo, clinical correlation, and further chest radiograph assessment. 3. Estimated LVEF of 62%.
--- NOTE | 2023-04-04 18:15 | CA ---
Lexiscan Nuclear Stress Test Report Name: Darcy Venegas Exam Date: 04/04/2023 09:49 Exam Location: [place] Stress Ht (in): 61 Wt (lb): 217 BSA: 1.96 Ordering Phys: Rai Aparicio DO Referring Phys: Lew Rose MD Technologist: Celso Castro Age: 67 Gender: F : 1955 Procedure CPT: Indications: I45.19 OTHER RIGHT BUNDLE-BRANCH BLOCK ICD-10 Codes: Patient History: DIFFICULTY IN BREATHING, HTN, ELEVATED CHOLESTEROL LEVELS, FAMILY HX OF HEART DISEASE Medications: Meds past 24 hrs: Pretest Chest Pain: STRESS TEST Lexiscan Protocol Exercise Duration (min:sec): 01:[address] Depressions (mm): Angina Score: Neri Score: Resting HR (bpm): 68 Peak HR (bpm): 87 Resting BP (mmHg): 125 / 89 Peak BP (mmHg): 143 / 80 MPHR: 151 Target HR: 128 % MPHR: 58 METS: 1.0 Total Dose: Peak Dose: Atropine: Double Product: 46381 BP Response: Stress Termination: INFUSION COMPLETE Stress Symptoms: NO SYMPTOMS Stress Summary: ECG ANALYSIS Resting ECG: Sinus rhythm. Normal conduction. No arrhythmias. Nonspecific ST-T abnormality. Stress ECG: No ECG changes from baseline with Lexiscan infusion. CONCLUSIONS No ECG evidence of ischemia with Lexiscan infusion. Nuclear test results to follow. Dr. Juan Jose Man MD (Electronically Signed) Final Date: 04 April 2023 18:14
== END | disposition home or self-care (01) ==
LOC: RADNMMAIN 07:45
PROVIDERS: ATTEND Family Medicine
DX: I45.19 Other right bundle-branch block (principal)
CPT/HCPCS: 93017; 78452; A9500

== ENCOUNTER → 2023-04-09 | Outpatient (CLI) | payer MEDICARE ==
--- NOTE | 2023-04-09 13:51 | XR ---
EXAMINATION TYPE: XR chest 2V DATE OF EXAM: 04/09/2023 COMPARISON: 03/13/2022 HISTORY: Shortness of breath TECHNIQUE: Frontal and lateral views of the chest are obtained. FINDINGS: Scattered senescent parenchymal changes noted. Hyperinflation compatible with COPD. No evidence for infiltrate. No evidence for atelectasis. Heart size is stable. Mediastinal structures are stable and grossly unremarkable. No evidence for hilar prominence. Degenerative changes dorsal spine. IMPRESSION: 1. No evidence for acute pulmonary disease.
== END | disposition home or self-care (01) ==
LOC: RADXRMAIN 13:09
PROVIDERS: ATTEND Family Medicine
DX: Z01.818 Encounter for other preprocedural examination (principal); R06.02 Shortness of breath
CPT/HCPCS: 71046

== ENCOUNTER 2023-04-17 14:25 | Day surgery (SDC) | payer MEDICARE ==
[2023-04-10 15:34] VITALS: BMI 41.0
[~2023-04-17 14:25] MED LIST changes: +ACETAMINOPHEN TAB 500 MG TAB PO PRN; +DEXAMETHASONE SOD PHOSPHATE 10 MG/ML 1 ML VIAL IV PRN; -DEXAMETHASONE SOD PHOSPHATE 4 MG/ML 1 ML VIAL IV ONE; +DOCUSATE 100 MG CAP PO PRN; +FAMOTIDINE 20 MG/2 ML VIAL IVP PRN; -HEPARIN SODIUM,PORCINE/PF 5,000 UNIT/0.5 ML SYRINGE SQ PRN; +KETOROLAC 15 MG/ML 1 ML VIAL IVP PRN; +ONDANSETRON 4 MG/2 ML VIAL IVP PRN; -Pre Op ABX Message 1 EACH MISC MISCELLANE ONE; +ROPIVACAINE/EPI/CLONIDINE/KET 50 ML SYRINGE MISCELLANE PRN; -SCOPOLAMINE 1 MG/72 HR PATCH TRANSDERM ONE; +TRANEXAMIC 1,000 MG/100ML-NACL 1,000 MG in SALINE 1 100ML.BAG IV PRN; +TRANEXAMIC 1,000 MG/100ML-NACL 1,000 MG in SALINE 1 100ML.BAG IVPB PRN; +VANCOMYCIN 1,500 MG in SODIUM CHLORIDE 0.9% 500 ML 500 ML IVPB PRN; +oxyCODONE ER 10 MG TAB.ER.12H PO PRN
[2023-04-17] MEDS ORDERED: MIDAZOLAM 2 MG/2 ML VIAL IVP ONE (15:13)
[2023-04-17] MEDS ORDERED: fentaNYL (PF) 50 MCG/1 ML VIAL IVP ONE (15:14)
[2023-04-17] MEDS ORDERED: GLYCOPYRROLATE 0.2 MG/ML 2 ML VIAL ONE (15:48)
[2023-04-17] MEDS ORDERED: ePHEDrine 50 MG/ML 1 ML VIAL ONE (15:48)
[2023-04-17] MEDS ORDERED: SODIUM CHLORIDE 0.9% (PF) 10 ML VIAL ONE (15:48)
[2023-04-17] MEDS ORDERED: SUCCINYLCHOLINE CHLORIDE 200 MG/10 ML VIAL IV ONE (15:48)
[2023-04-17] MEDS ORDERED: MIDAZOLAM 2 MG/2 ML VIAL ONE (15:48)
[2023-04-17] MEDS ORDERED: TRANEXAMIC 1,000 MG/100ML-NACL PREMIX BAG ONE (15:48)
[2023-04-17] MEDS ORDERED: NEOSTIGMINE 1 MG/ML 10 ML VIAL ONE (15:48)
[2023-04-17] MEDS ORDERED: ROCURONIUM 10 MG/ML (5 ML VIAL) IV ONE (15:48)
[2023-04-17] MEDS ORDERED: ROPIVACAINE 5 MG/ML 30 ML VIAL ONE (15:48)
[2023-04-17] MEDS ORDERED: PROPOFOL 10 MG/ML 20 ML VIAL IV ONE (15:48)
[2023-04-17] MEDS ORDERED: fentaNYL (PF) 50 MCG/ML 2 ML AMP ONE (15:48)
[2023-04-17] MEDS ORDERED: LIDOCAINE 2% INJ 20 MG/ML (2 ML VIAL) ONE (15:48)
[2023-04-17] MEDS ORDERED: LACTATED RINGERS 1,000 ML IV ONE (16:33)
[2023-04-17] MEDS ORDERED: HYDROmorphone 0.5 MG/0.5 ML SYRINGE IVP PRN ×3 (18:31)
[2023-04-17] MEDS ORDERED: HYDROcodone/APAP 5-325MG 1 EACH TAB PO PRN (18:31)
[2023-04-17] MEDS ORDERED: ONDANSETRON 4 MG/2 ML VIAL IVP PRN (18:31)
[2023-04-17] MEDS ORDERED: hydrOXYzine pamoate 25 MG CAP PO PRN (18:31)
[2023-04-17] MEDS ORDERED: NALOXONE 0.4 MG/ML 1 ML VIAL IV PRN (18:31)
--- NOTE | 2023-04-17 18:31 | P.OP ---
Date of Procedure: 04/17/23 Preoperative Diagnosis: 1. Severe left knee osteoarthritis 2. BMI 41.6 3. History of breast cancer Postoperative Diagnosis: Same Procedure(s) Performed: Left total knee arthroplasty Implants: 1. [employer] CR Femur Size #4 2. [employer] [place] Tibial Base Size #3 3. [employer] CS poly Size #3, 9-mm 4. [place] Triathlon all poly patella, Size #29 Anesthesia: BILL, regional Surgeon: Lew Rose Hoe Worker #1: Bala Singh Estimated Blood Loss (ml): 100 IV fluids (ml): 800 Pathology: none sent Condition: stable Disposition: PACU Indications for Procedure: I met with the patient preoperatively in the office setting and discussed treatment of their symptomatic knee arthritis. They failed a long course of nonsurgical treatment and elected to proceed with an elective total knee replacement. I discussed the potential risks and complications at length and gave them ample time to ask questions. Risks discussed included: risks from anesthesia, superficial site surgical infection, acute and/or chronic periprosthetic joint infection, delayed wound healing, drainage, wound necrosis, instability, stiffness, stiffness requiring manipulation and/or revision surger y, damage to local blood vessels or nerves, aseptic loosening of the implants, extensor mechanism issues including disruption, patellar maltracking, avascular necrosis etc., continued or worsened knee pain, generalized dissatisfaction with surgical outcome, need for revision surgery, an inability to regain preinjury level of function, DVT, PE, other medical complications, and possibly loss of life or limb. The patient voiced their understanding that while these are the most common complications other less common complications are possible. They provided both their verbal and written consent to go forward with surgery. Operative Findings: Severe tricompartmental osteoarthritis Description of Procedure: The patient was identified in preoperative holding and the correct operative extremity was verified and marked with a marker. I reviewed the consent form with the patient at length. All of their questions were answered. The patient was given a block by anesthesia. They were then brought back to the operating room. They were transferred onto the operating room table where a general anesthetic, preoperative antibiotics, and tranexamic acid were administered by anesthesia. A tourniquet was applied to the proximal aspect of the operative extremity. The contralateral extremity was padded under the heel and secured to the operating room table with a nonsterile blue towel and tape. The ipsilateral arm was carefully draped across the patient's chest and secured with a pillow and foam. A post was applied over the lateral aspect of the ipsilateral thigh and a bolster was placed under the ipsilateral foot. I verified that the operative extremity was stable and the knee was flexed to 90. The operative extremity was then placed in a leg gamble, nonsterile drapes were applied, and the extremity was prepped and draped sterilely in the standard sterile fashion. Prior to starting surgery timeout was performed identifying the correct patient, operative extremity, and procedure. The leg was then elevated, exsanguinated with an Esmarch bandage, and the tourniquet was inflated. An anterior midline incision was made sharply with a scalpel. Once I had dissected deep to the superficial fascial layer medial and lateral flaps were elevated. A medial parapatellar arthrotomy was created. Upon opening the knee joint there were diffuse arthritic changes in all 3 compartments. The anterior horn of the medial meniscus were sharply released and a medial release was performed around the posterior medial corner of the knee to facilitate retractor placement. The fat pad was excised with electrocautery. The patella was found to be severely arthritic and a provisional cut was made with a sagittal saw to facilitate mobilization of the extensor mechanism during the procedure. Remnants of the ACL and PCL were then excised from the notch. 4 mm pins were then placed within the incision in the medial distal femur and proximal tibia. Arrays were applied to the pins and I verified they were completely tightened. The knee was then registered with the [employer] robot and manipulations in implant position were made to balance the knee and opitmize implant position. Using the Luther robotic saw all cuts were made in accordance with our plan. After all bony fragments had been removed the cuts were verified with the planar probe. The tibia was then subluxed forward and sized. The knee was brought into flexion and a lamina computer network support specialist was placed to allow removal of the meniscal remnants both medially and laterally as well as posterior osteophytes. Local anesthetic was then infiltrated around the joint capsule. Trial implants were then placed within the knee. Range of motion and collateral ligament tension was then evaluated. Adjustments in implant size and position were then made accordingly. Once the knee was felt to be appropriately balanced the Luther pins were removed. The patella was then recut, sized, and punched. A trial patellar button was then placed. With the trial components in place, the patella tracked midline. The femur was then drilled and the trial component removed. The trial tibial component was then appropriately rotated, pinned, and prepared for the keel. All trial components were then removed from the knee. The knee was thoroughly irrigated with pulsatile lavage. Cement was prepared via vacuum mixing in a bowl on the back table. I then hand pressurized cement into the femur and tibia and placed the implants beginning with the tibial base tray and poly liner, femoral component, and finally the patellar button. All extruded cement was removed including from the pin sites. Once the cement had hardened the knee was evaluated one final time with the final polyethylene liner in place. The knee had full extension and flexion and felt stable to varus and valgus stress throughout the arc of motion. The tourniquet was released and with the tourniquet down the patella tracked midline. All bleeders were controlled with electrocautery. The knee was then soaked for 3 minutes with a dilute Betadine soak. The knee was thoroughly irrigated using 3 L of sterile saline and pulsatile lavage. A deep drain was placed. The extensor mechanism was then reapproximated using pop off Vicryl sutures followed by a running barbed suture. The knee was then closed in layers with a 0 strata fix for the deep fascial layer, 2-0 strata fix for the superficial subcutaneous layer and Monocryl and Steri-Strips for the skin. A sterile dressing and drain sponge were applied. I verified that all instrument, sponge, and sharp counts were correct. The patient was then transferred off the operating room table, extubated, and brought to recovery having tolerated the procedure well. Bala Singh PA-C was required as a skilled assistant golf coach due to the complexity of the procedure for patient positioning, draping, retraction, placement of hardware, and closure of wound. PLAN: The patient can weight-bear as tolerated on the operative extremity. DVT prophylaxis with aspirin 81 mg twice a day based on preoperative risk stratification. Follow-up in the office in 2 weeks for wound check and x-rays of the knee including an AP and lateral.
--- NOTE | 2023-04-17 19:15 | XR ---
EXAMINATION TYPE: XR knee limited LT DATE OF EXAM: 04/17/2023 COMPARISON: None HISTORY: Post knee replacement TECHNIQUE: 2 view left knee FINDINGS: Tibial and femoral components have been placed. Drainage catheter is present. Postsurgical soft tissue changes are evident. No acute fractures are evident IMPRESSION: 1. No acute fractures post left knee replacement
--- NOTE | 2023-04-17 19:23 | P.ANPRN ---
Procedure Note - Anesthesia - Nerve Block Performed Left Adductor Canal Time Out Performed: Yes (15:13) Date of Procedure: 04/17/23 Procedure Start Time: 15:13 Procedure Stop Time: 15:18 Location of Patient: PreOp Indication: Acute Post-Operative Pain, Requested by Surgeon (Dr Rose) Sedation Type: Sedate with meaningful contact maintained Preparation: Sterile Prep Position: Supine Catheter: None Needle Types: Pajunk Needle Gauge: 21 Ultrasound used to visualize needle placement: Yes Ultrasound used to observe medication spread: Yes Injectate: 0.5% Ropivacaine (see comment for volume) (20cc) Blood Aspirated: No Pain Paresthesia on Injection Noted: No Resistance on Injection: Normal Image Stored and Saved: Yes Events: Uneventful and Well Tolerated
--- NOTE | 2023-04-17 19:24 | P.ANPRN ---
Procedure Note - Anesthesia - Nerve Block Performed Left iPack Time Out Performed: Yes Date of Procedure: 04/17/23 Procedure Start Time: 15: Procedure Stop Time: Location of Patient: PreOp Indication: Requested by Surgeon (Dr Robles) Sedation Type: Sedate with meaningful contact maintained Preparation: Sterile Prep Position: Supine Catheter: None Needle Types: Pajunk Needle Gauge: 21 Ultrasound used to visualize needle placement: Yes Ultrasound used to observe medication spread: Yes Injectate: 0.5% Ropivacaine (see comment for volume) (15cc +5cc PF Normal saline) Blood Aspirated: No Pain Paresthesia on Injection Noted: No Resistance on Injection: Normal Image Stored and Saved: Yes Events: Uneventful and Well Tolerated
[2023-04-17] MEDS ORDERED: SENNOSIDES-DOCUSATE SODIUM 1 EACH TAB PO SCH (21:00)
[2023-04-17] MEDS ORDERED: FLUTICASONE 50MCG/SPRAY NASAL 16GM EA NOSTRIL PRN (21:04)
[2023-04-17] MEDS: LACTATED RINGERS 1,000 ML IV SCH (21:57)
[2023-04-17] MEDS: ASPIRIN 81 MG PO SCH (21:57)
[2023-04-17] MEDS ORDERED: ATORVASTATIN 10 MG TAB PO SCH (22:00)
[2023-04-18] MEDS: LACTATED RINGERS 1,000 ML IV SCH ×2 (04:12→09:28)
[2023-04-18] MEDS: HYDROcodone/APAP 5-325MG 1 EACH TAB PO PRN ×2 (06:37→12:33)
[2023-04-18 07:12] VITALS: BP 140/78; PULSE 80; TEMP 97.8
[2023-04-18] MEDS: ASPIRIN 81 MG PO SCH (07:39)
[2023-04-18] MEDS ORDERED: MULTIVITAMINS, THERA 1 EACH TAB PO SCH (09:00)
[2023-04-18] MEDS ORDERED: CHOLECALCIFEROL 25 MCG (1000 IU) TABLET PO SCH (09:00)
[2023-04-18] MEDS ORDERED: LETROZOLE 2.5 MG TAB PO SCH (09:00)
[2023-04-18 09:14] LABS: Basophils # (A) 0.01 X 10*3/uL (0.00-0.10); Basophils % (A) 0.1 %; Eosinophils # (A) 0 X 10*3/uL (0.04-0.35); Eosinophils % (A) 0 %; HCT 32.9 % (37.2-46.3); HGB 10.7 d/dL (12.0-15.0); Lymphocytes # (A) 0.45 X 10*3/uL (0.90-5.00); Lymphocytes % (A) 4.7 %; MCH 29.4 pg (27.0-32.0); MCHC 32.5 d/dL (32.0-37.0); MCV 90.4 FL (80.0-97.0); Mean Platelet Volume 9.7 FL (9.5-12.2); Monocytes # (A) 0.18 X 10*3/uL (0.20-1.00); Monocytes % (A) 1.9 %; NRBC Per 100 WBC 0 X 10*3/uL (0.00-0.01); Neutrophils % (A) 92.8 %; Platelet Count 177 X 10*3/uL (140-440); RBC 3.64 X 10*6/uL (4.10-5.20); RDW 13.2 % (11.5-14.5); WBC 9.59 X 10*3/uL (4.50-10.00)
[2023-04-18 10:20] VITALS: RESP 18
--- NOTE | 2023-04-18 12:39 | P.DS ---
Providers Attending physician: Lew Rose Consults: 04/17/23 18:31 Consult Physician Routine Consulting Provider: Sumanth Reynoso Consult Reason/Comments: medical management Do you want consulting provider notified?: Yes Primary care physician: Rai Aparicio Plan - Discharge Summary Discharge Rx Participant: Yes New Discharge Prescriptions: New Aspirin 81 mg PO BID 30 Days #60 tab Diclofenac Sodium [Voltaren] 75 mg PO BID 30 Days #60 tab Docusate [Colace] 100 mg PO BID #60 capsule HYDROcodone/APAP 5-325MG [[place] 5-325] 1 - 2 tab PO Q6HR PRN 7 Days #32 tab PRN Reason: Pain Omeprazole 40 mg PO DAILY 30 Days #30 cap No Action Multivitamins, Thera [Multivitamin (formulary)] 1 tab PO DAILY Cholecalciferol [Vitamin D3 (25 Mcg = 1000 Iu)] 25 mcg PO DAILY Lysine [l-Lysine] 100 mg PO DAILY amLODIPine [Norvasc] 5 mg PO HS Ascorbic Acid [Vitamin C] 25 mcg PO DAILY Docusate [Colace] 100 mg PO DAILY Rosuvastatin Calcium 5 mg PO HS Letrozole [Femara] 2.5 mg PO DAILY Milk Thistle 150 mg PO DAILY Fluticasone Nasal [place] [Flonase Nasal [place]] 2 spray EA NOSTRIL DAILY PRN spr PRN Reason: Allergy Symptoms Aspirin 81 mg PO DAILY Cyanocobalamin (Vitamin B-12) [Vitamin B-12] 2,000 mcg PO DAILY Losartan [Cozaar] 100 mg PO QAM Vitamin C/Biotin [Hair, Skin and Nails Chew] 1 tab PO DAILY Cannabidiol (Cbd) [Epidiolex] 1 dose PO DAILY Mupirocin 2% Oint [Bactroban 2% Oint] 1 applic NASAL DIRECTED Discharge Medication List Cholecalciferol [Vitamin D3 (25 Mcg = 1000 Iu)] 25 mcg PO DAILY 03/12/21 [History] Multivitamins, Thera [Multivitamin (formulary)] 1 tab PO DAILY 03/12/21 [History] Fluticasone Nasal [place] [Flonase Nasal [place]] 2 spray EA NOSTRIL DAILY PRN spr 03/14/21 [Rx] Lysine [l-Lysine] 100 mg PO DAILY 07/21/21 [History] Aspirin 81 mg PO DAILY 08/18/21 [History] amLODIPine [Norvasc] 5 mg PO HS 10/13/21 [History] Ascorbic Acid [Vitamin C] 25 mcg PO DAILY 10/20/21 [History] Cyanocobalamin (Vitamin B-12) [Vitamin B-12] 2,000 mcg PO DAILY 10/20/21 [History] Docusate [Colace] 100 mg PO DAILY 10/20/21 [History] Rosuvastatin Calcium 5 mg PO HS 10/20/21 [History] Letrozole [Femara] 2.5 mg PO DAILY 04/26/22 [History] Cannabidiol (Cbd) [Epidiolex] 1 dose PO DAILY 04/10/23 [History] Losartan [Cozaar] 100 mg PO QAM 04/10/23 [History] Milk Thistle 150 mg PO DAILY 04/10/23 [History] Vitamin C/Biotin [Hair, Skin and Nails Chew] 1 tab PO DAILY 04/10/23 [History] Mupirocin 2% Oint [Bactroban 2% Oint] 1 applic NASAL DIRECTED 04/12/23 [History] Aspirin 81 mg PO BID 30 Days #60 tab 04/18/23 [Rx] Diclofenac Sodium [Voltaren] 75 mg PO BID 30 Days #60 tab 04/18/23 [Rx] Docusate [Colace] 100 mg PO BID #60 capsule 04/18/23 [Rx] HYDROcodone/APAP 5-325MG [[place] 5-325] 1 - 2 tab PO Q6HR PRN 7 Days #32 tab 04/18/23 [Rx] Omeprazole 40 mg PO DAILY 30 Days #30 cap 04/18/23 [Rx] Follow up Appointment(s)/Referral(s): [facility], [NON-STAFF] - 1-2 Days ([facility] will call you to schedule your in home physical therapy visits. ) Lew Rose MD [Medical Doctor] - 2 Weeks Activity/Diet/Wound Care/Special Instructions: Weight bear to tolerance on operative extremity with a walker. Keep operative dressing in place until follow-up in the office. Call the office if dressing becomes saturated or falls off. May shower over dressing. Take pain medications as needed. Take aspirin 81mg BID x 4 weeks for blood clot prevention. Follow-up in the office in two weeks at [facility]. Call the office with any questions or concerns, Discharge Disposition: HOME WITH HOME HEALTH SERVICES
--- NOTE | 2023-04-18 14:32 | P.CONS ---
History of Present Illness - Reason for Consult Consult date: 04/18/23 Medical management - History of Present Illness History of present illness; patient is 67-year-old lady with past medical history significant for left knee osteoarthritis and breast cancer who presented to the hospital for elective left knee arthroplasty. Patient was being followed up outpatient with orthopedics, had failed long course of conservative measures including therapy and pain control, patient is a long discussion with orthopedics in outpatient setting and they agreed to proceed with left knee arthroplasty for which she was scheduled on 04/17. Postoperatively medicine team has been consulted for medical management REVIEW OF SYSTEMS: CONSTITUTIONAL: No fever, no malaise, no fatigue. HEENT: No recent visual problems or hearing problems. Denied any sore throat. CARDIOVASCULAR: No chest pain, orthopnea, PND, no palpitations, no syncope. PULMONARY: No shortness of breath, no cough, no hemoptysis. GASTROINTESTINAL: No diarrhea, no nausea, no vomiting, no abdominal pain. NEUROLOGICAL: No headaches, no weakness, no numbness. HEMATOLOGICAL: Denies any bleeding or petechiae. GENITOURINARY: Denies any burning micturition, frequency, or urgency. MUSCULOSKELETAL/RHEUMATOLOGICAL: Left knee pain ENDOCRINE: Denies any polyuria or polydipsia. The rest of the 14-point review of systems is negative. PHYSICAL EXAMINATION: GENERAL: The patient is alert and oriented x3, not in any acute distress. Well developed, well nourished. HEENT: Pupils are round and equally reacting to light. EOMI. No scleral icterus. No conjunctival pallor. Normocephalic, atraumatic. No pharyngeal erythema. No thyromegaly. CARDIOVASCULAR: S1 and S2 present. No murmurs, rubs, or gallops. PULMONARY: Chest is clear to auscultation, no wheezing or crackles. ABDOMEN: Soft, nontender, nondistended, normoactive bowel sounds. No palpable organomegaly. MUSCULOSKELETAL: Left knee surgical incision seen EXTREMITIES: No cyanosis, clubbing, or pedal edema. NEUROLOGICAL: Gross neurological examination did not reveal any focal deficits. SKIN: No rashes. Assessment and plan Left knee osteoarthritis status post left knee arthroplasty Hypertension Monitor vital signs Monitor CBC Monitor CMP Continue pain management perorthopedic Continue DVT prophylaxis per orthopedics Patient currently normotensive, hold losartan and Norvasc for now PT and OT evaluation Labs and medication were reviewed.. Continue same treatment. Continue with symptomatic treatment. Resume home medication. Monitor labs and vitals. DVT and GI prophylaxis. Further recommendations as per clinical course of the patient Dictation was produced using [employer] dictation software. please excuse any grammatical, word or spelling errors. Past Medical History Past Medical History: Cancer, Hyperlipidemia, Hypertension, Osteoarthritis (OA), Sleep Apnea/CPAP/BIPAP Additional Past Medical History / Comment(s): Uses CPAP for sleep apnea. BREAST CANCER-RT SIDE Oct 2021 rec radiation,no chemo. BRAIN ANEURSYM 05/2021-RESOLVED PER ANGIOGRAM IN APR 2022. fatty liver History of Any Multi-Drug Resistant Organisms: None Reported Past Surgical History: Appendectomy, Breast Surgery, Hysterectomy, Orthopedic Surgery Additional Past Surgical History / Comment(s): RIGHT KNEE SURGERY. Brain stent PLACED in May 2021 for aneurysm, COLONOSCOPY, ANGIOGRAM-04/28/21, RT LUMPECTOMY- ,Breast reduction,partial hyst Past Anesthesia/Blood Transfusion Reactions: Previous Problems w/ Anesthesia Additional Past Anesthesia/Blood Transfusion Reaction / Comm: PT STATES SHE ASPIRATED DURING COLONOSCOPY AROUND 2013 OR 2014. no hx blood transfusion Past Psychological History: Anxiety, Depression Additional Psychological History / Comment(s): NO MEDS NEEDED AT THIS TIME Smoking Status: Never smoker Past Alcohol Use History: Daily Additional Past Alcohol Use History / Comment(s): one drink daily Past Drug Use History: None Reported Additional Drug Use History / Comment(s): CBD gummies - Past Family History Mother Family Medical History: No Reported History Medications and Allergies Home Medications Medication Instructions Recorded Confirmed Type Cholecalciferol [Vitamin D3 (25 25 mcg PO DAILY 03/12/21 04/10/23 History Mcg = 1000 Iu)] Multivitamins, Thera [Multivitamin 1 tab PO DAILY 03/12/21 04/10/23 History (formulary)] Fluticasone Nasal [place] [Flonase 2 spray EA NOSTRIL DAILY PRN spr 03/14/21 04/10/23 Rx Nasal [place]] Lysine [l-Lysine] 100 mg PO DAILY 07/21/21 04/10/23 History Aspirin 81 mg PO DAILY 08/18/21 04/10/23 History amLODIPine [Norvasc] 5 mg PO HS 10/13/21 04/10/23 History Ascorbic Acid [Vitamin C] 25 mcg PO DAILY 10/20/21 04/10/23 History Cyanocobalamin (Vitamin B-12) 2,000 mcg PO DAILY 10/20/21 04/10/23 History [Vitamin B-12] Docusate [Colace] 100 mg PO DAILY 10/20/21 04/10/23 History Rosuvastatin Calcium 5 mg PO HS 10/20/21 04/10/23 History Letrozole [Femara] 2.5 mg PO DAILY 04/26/22 04/10/23 History Cannabidiol (Cbd) [Epidiolex] 1 dose PO DAILY 04/10/23 04/10/23 History Losartan [Cozaar] 100 mg PO QAM 04/10/23 04/10/23 History Milk Thistle 150 mg PO DAILY 04/10/23 04/10/23 History Vitamin C/Biotin [Hair, Skin and 1 tab PO DAILY 04/10/23 04/10/23 History Nails Chew] Mupirocin 2% Oint [Bactroban 2% 1 applic NASAL DIRECTED 04/12/23 04/12/23 History Oint] Allergies Allergy/AdvReac Type Severity Reaction Status Date / Time No Known Allergies Allergy Verified 04/17/23 14:44 Physical Exam Vitals: Vital Signs Temp Pulse Pulse Pulse Resp BP BP 04/18/23 09:07 04/18/23 07:11 97.8 F 80 16 140/78 04/18/23 01:58 97.6 F 87 18 116/72 04/17/23 21:30 83 116/74 04/17/23 21:15 87 122/75 04/17/23 21:00 93 122/70 04/17/23 20:45 73 119/73 04/17/23 20:30 72 118/74 04/17/23 20:15 85 110/70 04/17/23 20:00 83 118/71 04/17/23 19:45 83 114/71 04/17/23 19:30 97.3 F L 79 17 114/58 04/17/23 19:17 75 16 105/57 04/17/23 19:02 77 16 109/56 04/17/23 18:44 83 16 102/72 04/17/23 18:27 97 F L 84 16 112/58 04/17/23 15:24 63 16 113/56 04/17/23 15:20 65 16 113/56 04/17/23 14:53 97.2 F L 88 16 138/68 Pulse Ox FiO2 04/18/23 09:07 97 21 04/18/23 07:11 98 04/18/23 01:58 96 04/17/23 21:30 99 04/17/23 21:15 99 04/17/23 21:00 99 04/17/23 20:45 99 04/17/23 20:30 98 04/17/23 20:15 98 04/17/23 20:00 97 04/17/23 19:45 98 04/17/23 19:30 98 04/17/23 19:17 99 04/17/23 19:02 99 04/17/23 18:44 96 04/17/23 18:27 96 04/17/23 15:24 100 04/17/23 15:20 100 04/17/23 14:53 97 Intake and Output 04/17/23 04/18/23 04/18/23 22:59 06:59 14:59 Intake Total 2350 Output Total 100 100 Balance 2250 -100 Intake: IV 2350 Output: Drainage 100 Left Knee 100 Estimated Blood Loss 100 Other: # Voids 2 Weight 99.8 kg Results CBC & Chem 7: 04/18/23 04:18 Labs: Abnormal Lab Results - Last 24 Hours (Table) 04/18/23 Range/Units 04:18 RBC 3.64 L (4.10-5.20) X 10*6/uL Hgb 10.7 L (12.0-15.0) d/dL Hct 32.9 L (37.2-46.3) % Neutrophils # 8.90 H (1.80-7.70) X 10*3/uL Lymphocytes # 0.45 L (0.90-5.00) X 10*3/uL Monocytes # 0.18 L (0.20-1.00) X 10*3/uL Eosinophils # 0 L (0.04-0.35) X 10*3/uL
[2023-04-19] MEDS ORDERED: DOCUSATE 100 MG CAP PO SCH (09:00)
[2023-04-19] MEDS ORDERED: CYANOCOBALAMIN 500 MCG TAB PO SCH (09:00)
== END 2023-04-18 13:46 | disposition home health service (06) ==
LOC: OR 14:25 → 4SSUR 18:27 → OR 04-18 13:46
PROVIDERS: ATTEND Orthopaedic Surgery
DX: M17.12 Unilateral primary osteoarthritis, left knee (principal); I10 Essential (primary) hypertension; E78.5 Hyperlipidemia, unspecified; G47.33 Obstructive sleep apnea (adult) (pediatric); F10.90 Alcohol use, unspecified, uncomplicated; Z91.09 Other allergy status, other than to drugs and biological substances; Z85.3 Personal history of malignant neoplasm of breast; Z91.048 Other nonmedicinal substance allergy status; Z98.890 Other specified postprocedural states; Z90.711 Acquired absence of uterus with remaining cervical stump; Z90.49 Acquired absence of other specified parts of digestive tract; Z79.82 Long term (current) use of aspirin; Z79.899 Other long term (current) drug therapy; Z79.51 Long term (current) use of inhaled steroids
CPT/HCPCS: 94760; 97161; 64447; 64999; 85025; 73560; 27447; C1776; C1713; J2250; J3370; J0330; J1100; J2710; J0690 ×2; J2405; J3010 ×2; J2795; J1885; J2704; J2001

== ENCOUNTER → 2024-04-03 | Outpatient (CLI) | payer MEDICARE ==
--- NOTE | 2024-04-03 09:50 | BD ---
EXAMINATION TYPE: Axial Bone Density DATE OF EXAM: 04/03/2024 CLINICAL HISTORY: 68 years old Female. ICD-10 CODE: C50.411 BREAST CA Height: 60.5 Weight: 210.6 FRAX RISK QUESTIONS: Alcohol (3 or more units per day): no Family History (Parent hip fracture): father Glucocorticoids (More than 3mos): no (Ex: prednisone, prednisolone, methylprednisolone, dexamethasone, and hydrocortisone). History of Fracture in Adulthood: wrist, ankle Secondary Osteoporosis: 1. Type 1 Diabetes: no 2. Hyperthyroidism: no 3. Menopause before 45: no 4. Malnutrition: no 5. Chronic liver disease: fatty liver Rheumatoid Arthritis: no Current Tobacco Use: no RISK FACTORS HISTORY OF: Hip Fracture (Right/Left): no Spine Fracture: no History of Wrist Fracture: rt wrist When: 2004 Surgery to Spine/Hip(right/left)/Wrist (right/left): no MEDICATIONS: Thyroid Medications: no Osteoporosis Medications: no EXAM MEASUREMENTS: Bone mineral densitometry was performed using the [employer] System. Bone mineral density as measured about the Lumbar spine is: ----- L1-L4(G/cm2): 1.155 T Score Values are as follows: ----- L1: -0.7 ----- L2: -1.5 ----- L3: 1.0 ----- L4: 0.2 ----- L1-L4: -0.2 Z Score Values are as follows: ----- L1: -0.1 ----- L2: -0.8 ----- L3: 1.7 ----- L4: 0.9 ----- L1-L4: 0.5 Bone mineral density has: decreased -3.3 % since study of: 04/02/2022 Bone mineral density about the R hip (g/cm2): 0.982 Bone mineral density about the L hip (g/cm2): 0.962 T Score values are as follows: -----R Neck: -0.8 -----L Neck: -1.1 -----R Total: -0.2 -----L Total: -0.4 Z Score values are as follows: -----R Neck: 0.3 -----L Neck: 0.0 -----R Total: 0.6 -----L Total: 0.4 Bone mineral density has: decreased -3.6 % since study of: 04/02/2022 FRAX%s: The graph provided illustrates a 19.3% chance for a major osteoporotic fx and a 3.0% chance f or the hips probability for fx in 10 years time. IMPRESSION: Normal (Values between +1 and -1 indicate normal bone mass). Consider repeating this study in 5 year s or sooner if there is some new clinical indication. NOTE: T-SCORE=SD OF THE YOUNG ADULT MEAN.
--- NOTE | 2024-04-29 12:30 | MM ---
Reason for Exam: Screening (asymptomatic). Last mammogram was performed 1 year(s) and 1 month(s) ago. Patient History: Menarche at age 12. First Full-Term at age 27. Hysterectomy at age 41. Postmenopausal. Patient has history of breast feeding. Breast cancer, right, age 66. Previous chest radiation therapy at age 66. Hormonal Contraceptives for 5 years from age 20 until age 25. 02/14/2022, Reduction on the Left side. 09/16/2021, Reduction on the Right side. 05/31/2022, Benign US breast aspiration single LT on the left side. 10/24/2021, Lumpectomy on the Right side. 10/24/2021, Malignant Core Biopsy on the right side. 08/01/2021, Malignant Core Biopsy on the right side. Maternal cousin had breast cancer, age 58. Prior Study Comparison: 09/27/2015 Bilateral Screening Mammogram, [facility]. 07/10/2018 Bilateral Screening Mammogram, [facility]. 08/05/2018 Right Diagnostic Mammogram, [facility]. 08/06/2019 Bilateral Diagnostic Mammogram, [facility]. 07/03/2021 Bilateral Screening Mammogram, [facility]. 07/06/2021 Right Diagnostic Mammogram, [facility]. 08/01/2021 Right Diagnostic Mammogram, [facility]. 09/27/2022 Bilateral MG 3D diag mammo w/cad [facility], [facility]. 04/01/2023 Bilateral MG 3D diag mammo w/cad [facility], [facility]. Tissue Density: There are scattered areas of fibroglandular density. Findings: Analyzed By CAD. Right breast surgical clips. Right breast: There is no suspicious group of microcalcifications or new suspicious mass. Left breast: There is no suspicious group of microcalcifications or new suspicious mass. Overall Assessment: Benign, BI-RAD 2 Management: Screening Mammogram of both breasts in [address] [facility] will attempt to contact patient to return for supplemental views and ultrasound if indicated. Patient should continue monthly self-breast exams. A clinical breast exam by your physician is recommended on an annual basis. This exam should not preclude additional follow-up of suspicious palpable abnormalities. Note on Eileen scores and lifetime risk: 1. A Eileen score greater than 3% is considered moderate risk. If this is the case, consider specialist referral to assess eligibility for a risk reducing agent. 2. If overall lifetime risk for the development of breast cancer is 20% or higher, the patient may qualify for future screening with alternating mammogram and breast MRI. Electronically signed and approved by: Gurvinder Noel DO
== END | disposition home or self-care (01) ==
LOC: RADMAMWWP 08:56
PROVIDERS: ATTEND Internal Medicine Hematology & Oncology
DX: Z12.31 Encounter for screening mammogram for malignant neoplasm of breast (principal); C50.411 Malignant neoplasm of upper-outer quadrant of right female breast; Z78.0 Asymptomatic menopausal state; Z80.3 Family history of malignant neoplasm of breast; R92.323 Mammographic fibroglandular density, bilateral breasts
CPT/HCPCS: 77063; 77067; 77080